=== PATIENT | female | born 1940 | race Caucasian/White ===

== ENCOUNTER 2019-03-13 19:22 | Inpatient (IN) ==
[2019-03-13] MEDS ORDERED: FUROSEMIDE 40 MG/4 ML VIAL IV ONE (19:41)
--- NOTE | 2019-03-13 19:43 | Emergency Department Note ---
SOB HPI - General Chief Complaint: Shortness of Breath/Dyspnea Stated Complaint: SOA Time Seen by Provider: 03/13/19 19:41 Source: patient Mode of arrival: ambulatory - History of Present Illness This patient has been feeling short of breath today and has been taking some extra Lasix at home but still feels short of breath. No chest pain no cough. O2 saturations are in the 80s. - Related Data Home Medications Medication Instructions Recorded Confirmed aspirin 81 mg tablet,delayed 81 mg PO QDAY tab 02/27/15 11/30/18 release ferrous sulfate 325 mg (65 mg 325 mg PO QDAY 03/26/16 11/30/18 iron) tablet cholecalciferol (vitamin D3) 400 400 unit PO QDAY 05/18/17 11/30/18 unit capsule magnesium oxide 400 mg (241.3 mg 400 mg PO QDAY tab 07/27/17 11/30/18 magnesium) tablet metoprolol succinate ER 100 mg 50 mg PO .COMPLEX 90 Days #45 tab 11/16/17 11/30/18 tablet,extended release 24 hr hydralazine 25 mg tablet 12.5 mg PO BID tab 05/19/18 11/30/18 potassium chloride ER 10 mEq 10 meq PO QDAY tab 11/09/18 11/30/18 tablet,extended release Previous Rx's Medication Instructions Recorded blood-glucose meter kit See Dose Instructions .ROUTE 08/12/17 .MEDSUPPLY #1 each blood sugar diagnostic strips See Dose Instructions .ROUTE 08/18/17 .MEDSUPPLY #300 each lancets 30 gauge See Dose Instructions .ROUTE 08/18/17 .MEDSUPPLY #300 each tramadol 37.5 mg-acetaminophen 325 1 tab PO q12h PRN #60 tab 03/16/18 mg tablet oxybutynin chloride ER 10 mg 10 mg PO BID #180 tab 05/10/18 tablet,extended release 24 hr alendronate 70 mg tablet 70 mg PO QWEEK #12 tab 07/14/18 furosemide 20 mg tablet 20 mg PO QDAY #60 tab 07/27/18 levothyroxine 137 mcg tablet 137 mcg PO QDAY #90 tab 11/01/18 lorazepam 1 mg tablet 1 mg PO BID PRN #60 tab 11/22/18 amlodipine 10 mg tablet 10 mg PO QDAY #90 tab 12/30/18 metformin 500 mg tablet 500 mg PO QDAY #90 tab 02/08/19 pantoprazole 40 mg tablet,delayed 40 mg PO QDAY #90 tab 02/08/19 release simvastatin 20 mg tablet 20 mg PO QPM #90 tab 02/08/19 clonidine HCl 0.3 mg tablet 0.3 mg PO BID #60 tab 02/25/19 Allergies Allergy/AdvReac Type Severity Reaction Status Date / Time codeine Allergy Unknown Unknown Verified 03/02/19 08:31 Environmental Allergies Allergy Unknown Unknown Uncoded 11/30/18 12:54 Tape Allergy Unknown Unknown Uncoded 11/30/18 12:54 Review of Systems All systems ED: reviewed and negative except as stated. Past Medical History - Past Medical History [facility] Narrative: Medical History (Last Reviewed 11/09/18 @ 10:00 by Javid Parikh MD) Stress (Chronic) Osteoporosis (Chronic) Congestive heart failure (Resolved) Pulmonary edema (Resolved) Hypoxia (Resolved) Respiratory distress (Resolved) Diabetes mellitus type 2 in nonobese (Chronic) PVD (peripheral vascular disease) (Chronic) PVC (premature ventricular contraction) (Chronic) First degree AV block (Chronic) Hypertensive heart disease (Chronic) Bradycardia (Chronic) Abnormal laboratory test (Chronic) Metabolic Syndrome X (Chronic) Low back pain (Chronic) Uncontrolled hypertension (Chronic) Ventricular ectopy (Chronic) Anxiety (Chronic) Anemia (Chronic) Abnormal EKG (Resolved) Hyponatremia (Resolved) Nausea & vomiting (Resolved) Hypertensive urgency (Resolved) Sciatica of right side (Chronic) Edema (Chronic) History of hysterectomy (Resolved) Parathyroid gland disorder (Chronic) Stress reaction (Chronic) Pneumonia (Resolved) Osteopenia (Chronic) Osteoarthritis (Chronic) Onychomycosis (Chronic 02/21/14) Metabolic syndrome (Chronic) Joint disorder (Resolved) Hyperparathyroidism, primary (Chronic) Hypothyroidism (Chronic) Hyperlipidemia (Chronic) Hypercalcemia (Chronic) HTN (hypertension) (Chronic) 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) Gastroesophageal reflux (Chronic) Fatigue (Chronic) Esophageal stricture (Chronic) Diverticulosis of colon (Chronic) Diabetes mellitus, type II (Chronic) Degenerative joint disease (Chronic) Syncope (Resolved) Thyroid nodule (Chronic) Toe fracture (Resolved) Colon adenoma (Chronic) Bronchitis (Chronic) Status of breast implant (Chronic 11/25/12) Carcinoma in situ of breast (Resolved) Arrhythmia (Chronic) Actinic keratosis (Chronic) Achilles bursitis (Resolved) 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) Trigger finger, acquired (Chronic) Past Surgical History (Last Reviewed 11/09/18 @ 10:00 by Javid Parikh MD) Hx of partial thyroidectomy (Resolved) History of parathyroidectomy (Resolved) History of breast reconstruction (Resolved) History of salpingoophorectomy (Resolved) History of left mastectomy (Resolved) History of tonsillectomy (Resolved) History of esophagogastroduodenoscopy (Resolved 03/10/14) History of colonoscopy (Chronic Unknown) History of cataract surgery (Resolved) History of cardiac catheterization (Resolved 12/18/10) History of breast surgery (Resolved) History of appendectomy (Resolved) Family History (Last Reviewed 11/09/18 @ 10:00 by Javid Parikh MD) Sister Diabetes mellitus Uncle Family history of malignant neoplasm Brother Hyperlipidemia Essential hypertension Mother Malignant neoplasm of stomach Grandmother(maternal) Malignant neoplasm of stomach Medical history: Reports: cancer (Carcinoma in situ left breast.), CHF, DM (type 2, not on insulin.), GERD, hyperlipidemia, hypertension, hypothyroidism, thyroid disease (Thyroid nodule.), other (First-degree AV block. Hypertensive heart disease. Bradycardia. Low back pain. PVCs. Anemia. Parathyroid adenoma. Pneumonia. Osteopenia. Osteoarthritis of fingers and lower spine. Metabolic syndrome. Hyperparathyroidism. Hypercalcemia. Randy [place] syndrome. Kiel's disease. Esophageal stricture. Diverticulosis, sigmoid. Colon adenoma.) Psychiatric history: Reports: anxiety Surgical history ED: Reports: appendectomy (1953.), breast surgery (Mastectomy, 1995 with radical reconstruction. Bilateral implants 1979. Reconstruction, left, 2000.), cataract (Bilateral.), ALEXIS/BSO, thyroidectomy (Partial, right bridgett-.), tonsillectomy (1942.), other (Parathyroidectomy, 2009.) - Social History smoking status: Never smoker Alcohol use: Reports: None Physical Exam Limitations: no limitations General appearance: alert Head: atraumatic Eye: Present: normal appearance ENT: Present: normal exam Neck: Present: normal inspection Chest: Present: normal inspection Respiratory: Present: rales/crackles Cardiovascular: Present: regular rate, normal rhythm, normal heart sounds Abdominal: Present: soft, distention. Absent: tenderness Neurological: Present: alert Psychiatric: Present: normal affect Skin: Present: warm, dry Course Vital Signs Temperature 97.6 F 03/13/19 19:22 Pulse Rate 94 H 03/13/19 19:22 Respiratory Rate 22 03/13/19 19:22 Blood Pressure 124/95 03/13/19 19:22 Pulse Oximetry (%) 79 L 03/13/19 19:22 Temperature 97.7 F 03/14/19 07:01 Pulse Rate 89 03/14/19 07:01 Respiratory Rate 16 03/14/19 07:01 Blood Pressure 118/82 03/14/19 07:01 Pulse Oximetry (%) 95 03/14/19 07:01 Shortness of Breath/Dyspnea - MDM Narrative Medical decision making narrative: This patient has a pneumonia and will be admitted to the hospital by Dr. William. - Lab Data Lab results reviewed: Yes I reviewed the patient's lab results. Result diagrams: 03/14/19 03:24 03/14/19 03:24 Lab Results 03/13/19 03/13/19 03/13/19 Range/Units 19:40 19:40 19:40 WBC 10.8 (4.5-11.0) K/mcL RBC 5.40 H (4.00-5.20) M/mcL Hgb 14.9 (12.0-15.0) g/dL Hct 46.3 (36.0-48.0) % MCV 85.7 (80.0-100.0) fL MCH 27.6 (26.0-34.0) pg MCHC 32.2 (31.0-36.0) g/dL RDW 15.3 H (11.5-14.5) % Plt Count 252 (140-440) K/mcL MPV 10.9 H (7.4-10.4) fL Gran % 77.3 (38.0-78.0) % Lymph % (Auto) 12.8 L (15.5-49.0) % Daggett % (Auto) 8.7 (1.0-12.0) % Eos % (Auto) 0.7 (0.0-7.0) % Baso % (Auto) 0.5 (0.0-2.0) % Gran # 8.4 H (1.8-8.0) K/mcL Lymph # (Auto) 1.4 L (1.5-4.8) K/mcL Daggett # (Auto) 0.9 (0.1-0.9) K/mcL Eos # (Auto) 0.1 (0.0-0.7) K/mcL Baso # (Auto) 0.1 (0.0-0.3) K/mcL VBG Lactic Acid (0.5-2.0) mmol/L Sodium 134 (133-145) mmol/L Potassium 4.0 (3.3-5.1) mmol/L Chloride 96 (96-108) mmol/L Carbon Dioxide 22 (22-30) mmol/L Anion Gap 16.0 (8-16) BUN 17 (8-23) mg/dl Creatinine 1.1 (0.6-1.1) mg/dl GFR Calculation 48 Glucose 149 H (70-105) mg/dL Calcium 10.4 (8.6-10.4) mg/dl Total Bilirubin 0.3 (0.0-1.0) mg/dL AST 25 (0-37) U/l ALT 27 (0-40) U/l Alkaline Phosphatase 114 (39-117) U/L Troponin T < 0.01 (0-0.03) ng/ml NT-Pro-B Natriuret Pep (0-450) pg/ml Total Protein 7.7 (5.9-8.4) gm/dL Albumin 4.3 (3.2-5.2) gm/dL Globulin 3.4 (2.2-3.7) gm/dL Albumin/Globulin Ratio 1.3 (1.0-2.3) Procalcitonin (<0.10) ng/mL 03/13/19 03/13/19 03/13/19 Range/Units 21:09 22:21 22:21 WBC (4.5-11.0) K/mcL RBC (4.00-5.20) M/mcL Hgb (12.0-15.0) g/dL Hct (36.0-48.0) % MCV (80.0-100.0) fL MCH (26.0-34.0) pg MCHC (31.0-36.0) g/dL RDW (11.5-14.5) % Plt Count (140-440) K/mcL MPV (7.4-10.4) fL Gran % (38.0-78.0) % Lymph % (Auto) (15.5-49.0) % Daggett % (Auto) (1.0-12.0) % Eos % (Auto) (0.0-7.0) % Baso % (Auto) (0.0-2.0) % Gran # (1.8-8.0) K/mcL Lymph # (Auto) (1.5-4.8) K/mcL Daggett # (Auto) (0.1-0.9) K/mcL Eos # (Auto) (0.0-0.7) K/mcL Baso # (Auto) (0.0-0.3) K/mcL VBG Lactic Acid 1.5 (0.5-2.0) mmol/L Sodium (133-145) mmol/L Potassium (3.3-5.1) mmol/L Chloride (96-108) mmol/L Carbon Dioxide (22-30) mmol/L Anion Gap (8-16) BUN (8-23) mg/dl Creatinine (0.6-1.1) mg/dl GFR Calculation Glucose (70-105) mg/dL Calcium (8.6-10.4) mg/dl Total Bilirubin (0.0-1.0) mg/dL AST (0-37) U/l ALT (0-40) U/l Alkaline Phosphatase (39-117) U/L Troponin T < 0.01 (0-0.03) ng/ml NT-Pro-B Natriuret Pep (0-450) pg/ml Total Protein (5.9-8.4) gm/dL Albumin (3.2-5.2) gm/dL Globulin (2.2-3.7) gm/dL Albumin/Globulin Ratio (1.0-2.3) Procalcitonin < 0.05 (<0.10) ng/mL 03/13/19 Range/Units 22:21 WBC (4.5-11.0) K/mcL RBC (4.00-5.20) M/mcL Hgb (12.0-15.0) g/dL Hct (36.0-48.0) % MCV (80.0-100.0) fL MCH (26.0-34.0) pg MCHC (31.0-36.0) g/dL RDW (11.5-14.5) % Plt Count (140-440) K/mcL MPV (7.4-10.4) fL Gran % (38.0-78.0) % Lymph % (Auto) (15.5-49.0) % Daggett % (Auto) (1.0-12.0) % Eos % (Auto) (0.0-7.0) % Baso % (Auto) (0.0-2.0) % Gran # (1.8-8.0) K/mcL Lymph # (Auto) (1.5-4.8) K/mcL Daggett # (Auto) (0.1-0.9) K/mcL Eos # (Auto) (0.0-0.7) K/mcL Baso # (Auto) (0.0-0.3) K/mcL VBG Lactic Acid (0.5-2.0) mmol/L Sodium (133-145) mmol/L Potassium (3.3-5.1) mmol/L Chloride (96-108) mmol/L Carbon Dioxide (22-30) mmol/L Anion Gap (8-16) BUN (8-23) mg/dl Creatinine (0.6-1.1) mg/dl GFR Calculation Glucose (70-105) mg/dL Calcium (8.6-10.4) mg/dl Total Bilirubin (0.0-1.0) mg/dL AST (0-37) U/l ALT (0-40) U/l Alkaline Phosphatase (39-117) U/L Troponin T (0-0.03) ng/ml NT-Pro-B Natriuret Pep 63139.0 H (0-450) pg/ml Total Protein (5.9-8.4) gm/dL Albumin (3.2-5.2) gm/dL Globulin (2.2-3.7) gm/dL Albumin/Globulin Ratio (1.0-2.3) Procalcitonin (<0.10) ng/mL - Radiology Data Radiology results reviewed: Yes I reviewed the patient's radiology results. Disposition Pt seen by ACCELERATOR TECHNICIAN/PA only: No Clinical Impression: Community acquired pneumonia Disposition: Xfer As Inpt ([facility]) Condition: Fair
--- NOTE | 2019-03-13 20:27 | XRay Report ---
HISTORY: Shortness of breath FINDINGS: Large alveolar infiltrates are present throughout both lungs with the greatest consolidation in the lower lobes, right worse than left. The heart is mildly enlarged. Pulmonary vessels are obscured by the infiltrates. The infiltrates have become worse bilaterally since 12/24/17. Heart is larger today. There are surgical clips in the axillary portion left breast. IMPRESSION: Severe infiltrates in both lungs. The pattern is more suggestive of pneumonia rather than pulmonary edema. Interpreted and Authenticated by: Vladimir Alas 03/13/19
[2019-03-13] MEDS ORDERED: cefTRIAXone 1 GM VIAL IV ONE (20:30)
[2019-03-13] MEDS ORDERED: LEVOFLOXACIN 750 MG/150 ML BAG IV ONE (20:30)
[2019-03-13 20:41] LABS: Basophils # (Auto) 0.1 K/mcL (0.0-0.3); Basophils % (Auto) 0.5 % (0.0-2.0); Eosinophils # (Auto) 0.1 K/mcL (0.0-0.7); Eosinophils % (Auto) 0.7 % (0.0-7.0); Granulocytes % (Auto) 77.3 % (38.0-78.0); Hematocrit 46.3 % (36.0-48.0); Hemoglobin 14.9 g/dL (12.0-15.0); Lymphocytes # (Auto) 1.4 K/mcL (1.5-4.8); Lymphocytes % (Auto) 12.8 % (15.5-49.0); Mean Cell Volume 85.7 fL (80.0-100.0); Mean Corpuscular HGB Conc 32.2 g/dL (31.0-36.0); Mean Platelet Volume 10.9 fL (7.4-10.4); Monocytes # (Auto) 0.9 K/mcL (0.1-0.9); Monocytes % (Auto) 8.7 % (1.0-12.0); Platelet Count 252 K/mcL (140-440); Red Cell Distribution Width 15.3 % (11.5-14.5); WBC 10.8 K/mcL (4.5-11.0)
[2019-03-13 21:03] LABS: ALT/SGPT 27 U/l (0-40); AST/SGOT 25 U/l (0-37); Albumin 4.3 gm/dL (3.2-5.2); Albumin/Globulin Ratio 1.3 (1.0-2.3); Alkaline Phosphatase 114 U/L (39-117); Bilirubin,Total 0.3 mg/dL (0.0-1.0); Blood Urea Nitrogen 17 mg/dl (8-23); Calcium 10.4 mg/dl (8.6-10.4); Carbon Dioxide 22 mmol/L (22-30); Chloride 96 mmol/L (96-108); Globulin 3.4 gm/dL (2.2-3.7); Glomerular Filtration Rate 48; Glucose 149 mg/dL (70-105)
--- NOTE | 2019-03-13 23:46 | Internal Med History&Physical ---
Medical - H&P: HPI Patient information: Note initiated : 03/13/19 at 11:40 pm Service Date, if different from initiated Date: [] Patient: Jeanne Stover a 78 y/o F admitted on for SOB. Chief Complaint: Dyspnea History of present illness: Ms. Stover is a 78 year old F with a history of hypertension, type 2 diabetes, diastolic congestive heart failure, peripheral arterial disease who presents to the emergency room with the onset of dyspnea. History is obtained in speaking to the patient, Dr. benton as well as reviewing old records which are obtained and summarized. Patient was feeling fairly well today, to her usual self until about 5:30 PM when she had the fairly abrupt onset of shortness of breath. She tells me it was her congestive heart failure and she felt the fluid building in her lungs. In retrospect she noted that she had started coughing a bit earlier in the day and felt a rattling in her chest which has happened on previous occasions when she has had heart failure. She was producing some clear sputum. She took a dose of her Lasix (20 mg) at home, did not have a diuretic effect, repeated the dose without effect. During this time she could not lie down due to dyspnea, and indeed had gone from sitting upright with dyspnea to having to bend over to try to catch her breath. She notes that over the last few days she does not think her furosemide has been producing diuresis as usual. Over the last couple of weeks she is gained about 5 pounds. She does have some chronic lower extr emity edema which is about the same. She has had no change in her diet or medication regimen. She occasionally gets up at night with a similar dyspneic and rattling feeling, treated with an oral furosemide until it improves. This occurred most recently a couple of nights ago. Her blood pressure at home this morning was 134/71, she checks it daily. Patient as noted was feeling well yesterday, was feeling fine until afternoon today. She is had no fever, no chills. No chest pain no chest tightness or squeezing. No pleuritic pain. No purulent sputum. In the emergency department, the patient was in hypoxic respiratory failure requiring supplemental oxygen up to a nonrebreather at times. Evaluation showed bilateral alveolar infiltrates, concerning for pneumonia. Her white count was 10,000. Her temperature was normal. Blood pressure was high normal to elevated. Pulse was in the 80-100 range. She received antibiotics for pneumonia, received 40 mg of furosemide with significant diuresis after IV administration. When I see the patient, she states she is feeling much better with a significant improvement in her shortness of breath after the diuretic. No headache, no vision changes, no sore throat, no rhinorrhea, no abdominal pain, no nausea, vomiting, diarrhea. No dysuria. No focal neurologic symptoms. She is being admitted for the treatment of acute hypoxic respiratory failure, suspected heart failure, rule out pneumonia. All systems: reviewed and no additional remarkable complaints except as stated Medical - H&P: PMH Medical history: Stress (Chronic) Osteoporosis (Chronic) Congestive heart failure (Resolved) Pulmonary edema (Resolved) Hypoxia (Resolved) Diabetes mellitus type 2 in nonobese (Chronic) PVD (peripheral vascular disease) (Chronic) PVC (premature ventricular contraction) (Chronic) First degree AV block (Chronic) Hypertensive heart disease (Chronic) Bradycardia (Chronic) Abnormal laboratory test (Chronic) Metabolic Syndrome X (Chronic) Low back pain (Chronic) Uncontrolled hypertension (Chronic) Ventricular ectopy (Chronic) Anxiety (Chronic) Anemia (Chronic) Abnormal EKG (Resolved) Hyponatremia (Resolved) Nausea & vomiting (Resolved) Hypertensive urgency (Resolved) Sciatica of right side (Chronic) Edema (Chronic) History of hysterectomy (Resolved) Parathyroid gland disorder (Chronic) Stress reaction (Chronic) Pneumonia (Resolved) Osteopenia (Chronic) Osteoarthritis (Chronic) Onychomycosis (Chronic 02/21/14) Metabolic syndrome (Chronic) Joint disorder (Resolved) Hyperparathyroidism, primary (Chronic) Hypothyroidism (Chronic) Hyperlipidemia (Chronic) Hypercalcemia (Chronic) HTN (hypertension) (Chronic) 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) Gastroesophageal reflux (Chronic) Fatigue (Chronic) Esophageal stricture (Chronic) Diverticulosis of colon (Chronic) Diabetes mellitus, type II (Chronic) Degenerative joint disease (Chronic) Syncope (Resolved) Thyroid nodule (Chronic) Toe fracture (Resolved) Colon adenoma (Chronic) Bronchitis (Chronic) Status of breast implant (Chronic 11/25/12) Carcinoma in situ of breast (Resolved) Arrhythmia (Chronic) Actinic keratosis (Chronic) Achilles bursitis (Resolved) 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) Trigger finger, acquired (Chronic) Surgical history: Hx of partial thyroidectomy (Resolved) History of parathyroidectomy (Resolved) History of breast reconstruction (Resolved) History of salpingoophorectomy (Resolved) History of left mastectomy (Resolved) History of tonsillectomy (Resolved) History of esophagogastroduodenoscopy (Resolved 03/10/14) History of colonoscopy (Chronic Unknown) History of cataract surgery (Resolved) History of cardiac catheterization (Resolved 12/18/10) History of breast surgery (Resolved) History of appendectomy (Resolved) Pertinent family history: Sister Diabetes mellitus Uncle Family history of malignant neoplasm Brother Hyperlipidemia Essential hypertension Mother Malignant neoplasm of stomach Grandmother(maternal) Malignant neoplasm of stomach Social history: Patient lives with her . She occasionally has alcoholic drink. She does not smoke tobacco. Medical - H&P: Meds Home Medications Medication Instructions Recorded Confirmed Type aspirin 81 mg tablet,delayed 81 mg PO QDAY tab 02/27/15 11/30/18 History release ferrous sulfate 325 mg (65 mg 325 mg PO QDAY 03/26/16 11/30/18 History iron) tablet cholecalciferol (vitamin D3) 400 400 unit PO QDAY 05/18/17 11/30/18 History unit capsule magnesium oxide 400 mg (241.3 mg 400 mg PO QDAY tab 07/27/17 11/30/18 History magnesium) tablet blood-glucose meter kit See Dose Instructions .ROUTE 08/12/17 11/09/18 Rx .MEDSUPPLY #1 each blood sugar diagnostic strips See Dose Instructions .ROUTE 08/18/17 11/09/18 Rx .MEDSUPPLY #300 each lancets 30 gauge See Dose Instructions .ROUTE 08/18/17 11/09/18 Rx .MEDSUPPLY #300 each metoprolol succinate ER 100 mg 50 mg PO .COMPLEX 90 Days #45 tab 11/16/17 History tablet,extended release 24 hr tramadol 37.5 mg-acetaminophen 325 1 tab PO q12h PRN #60 tab 03/16/18 11/30/18 Rx mg tablet oxybutynin chloride ER 10 mg 10 mg PO BID #180 tab 05/10/18 11/30/18 Rx tablet,extended release 24 hr hydralazine 25 mg tablet 12.5 mg PO BID tab 05/19/18 11/30/18 History alendronate 70 mg tablet 70 mg PO QWEEK #12 tab 07/14/18 11/30/18 Rx furosemide 20 mg tablet 20 mg PO QDAY #60 tab 07/27/18 11/30/18 Rx levothyroxine 137 mcg tablet 137 mcg PO QDAY #90 tab 11/01/18 11/30/18 Rx potassium chloride ER 10 mEq 10 meq PO QDAY tab 11/09/18 11/30/18 History tablet,extended release lorazepam 1 mg tablet 1 mg PO BID PRN #60 tab 11/22/18 11/30/18 Rx amlodipine 10 mg tablet 10 mg PO QDAY #90 tab 12/30/18 Rx metformin 500 mg tablet 500 mg PO QDAY #90 tab 02/08/19 Rx pantoprazole 40 mg tablet,delayed 40 mg PO QDAY #90 tab 02/08/19 Rx release simvastatin 20 mg tablet 20 mg PO QPM #90 tab 02/08/19 Rx clonidine HCl 0.3 mg tablet 0.3 mg PO BID #60 tab 02/25/19 Rx Allergies Allergy/AdvReac Type Severity Reaction Status Date / Time codeine Allergy Unknown Unknown Verified 03/02/19 08:31 Environmental Allergies Allergy Unknown Unknown Uncoded 11/30/18 12:54 Tape Allergy Unknown Unknown Uncoded 11/30/18 12:54 Medical - H&P: Exam - Constitutional Vitals: Temp Pulse Resp BP Pulse Ox 97.6 F 93 H 20 136/87 94 03/13/19 19:22 03/13/19 22:29 03/13/19 22:29 03/13/19 22:29 03/13/19 22:29 Exam: GENERAL: Alert, oriented, in no acute distress. Cooperative, appears stated age. HEENT: Atraumatic. PERRL at 4 mm, conjunctiva clear, no scleral icterus. He aring grossly intact. Oropharynx with moist mucous membranes tongue midline. Ventimask in place NECK: Supple without meningismus, no thyromegaly RESPIRATORY: Crackles up approximately 2/3 bilaterally posteriorly, crackles also appreciated in anterior lung bird. Mild accessory muscle use. CARDIOVASCULAR: Irregular (PVCs on monitor), partially obscured by lung sounds, no murmur appreciated. Trace to 1+ peripheral edema at the ankles. JVP 1 cm above the clavicle while the patient is at approximately 60 degrees. Carotid pulses 2+ without bruit. Pedal pulses 2+. GI: Abdomen soft, nontender, no guarding or rebound. Bowel sounds are present. No hepatosplenomegaly. MUSCULOSKELETAL: No joint erythema or swelling, normal range of motion in all extremities. SKIN: Warm, dry. Skin turgor decreased. NEUROLOGIC: Cranial nerves II through XII grossly intact. Muscle mass normal for age. Strength 5/5 in the upper and lower extremities. Sensation intact to light touch bilaterally. Deep tendon reflexes 2+ at the biceps and patella. PSYCHIATRIC: Alert, oriented x3, normal mood and affect, normal insight. Medical - H&P: Reslt - Labs CBC & Chem 7: 03/13/19 19:40 03/13/19 19:40 Labs: Short CBC 03/13/19 Range/Units 19:40 WBC 10.8 (4.5-11.0) K/mcL Hgb 14.9 (12.0-15.0) g/dL Hct 46.3 (36.0-48.0) % Plt Count 252 (140-440) K/mcL BMP 03/13/19 19:40 Sodium 134 Potassium 4.0 Chloride 96 Carbon Dioxide 22 BUN 17 Creatinine 1.1 Glucose 149 H Calcium 10.4 Cardiac Enzymes 03/13/19 03/13/19 Range/Units 19:40 22:21 Troponin T < 0.01 < 0.01 (0-0.03) ng/ml Liver Function 03/13/19 Range/Units 19:40 Total Bilirubin 0.3 (0.0-1.0) mg/dL AST 25 (0-37) U/l ALT 27 (0-40) U/l Alkaline Phosphatase 114 (39-117) U/L Albumin 4.3 (3.2-5.2) gm/dL - EKG Data -: EKG Reviewed by Myself - Imaging and Cardiology Chest x-ray Status: image reviewed by me Additional comments: FINDINGS: Large alveolar infiltrates are present throughout both lungs with the greatest consolidation in the lower lobes, right worse than left. The heart is mildly enlarged. Pulmonary vessels are obscured by the infiltrates. The infiltrates have become worse bilaterally since 12/24/17. Heart is larger today. There are surgical clips in the axillary portion left breast. IMPRESSION: Severe infiltrates in both lungs. The pattern is more suggestive of pneumonia rather than pulmonary edema. Medical - H&P: A/P (1) Acute respiratory failure with hypoxia Current visit: Yes Status: Acute (2) Acute on chronic diastolic congestive heart failure Current visit: Yes Status: Acute (3) Hypertensive heart disease Current visit: No Status: Chronic (4) Pneumonia Problem details: remote Current visit: No Status: Resolved - Narrative A/P Narrative: 78-year-old female with a history of hypertension, hypertensive heart disease, diastolic heart failure, diabetes presents with acute respiratory distress and respiratory failure. Acute hypoxic respiratory failure. Onset was fairly abrupt about 5:30 PM this evening and severe in nature. She has had past similar feelings associated with decompensation of her heart failure. Radiograph is concerning for possible pneumonia, though she has no leukocytosis, fever or purulent sputum. She has improved after diuresis. In 2017, echocardiogram showed grade 2 diastolic dysfunction. Plan: Inpatient admission to telemetry Continue with diuresis Monitor for evidence of infection, continue antibiotics if apparent Supplemental oxygen as needed Diastolic heart failure. Suspicion for acute on chronic diastolic heart failure. BNP is elevated to almost 11,000. Last reading earlier in 2019 and in 2018 were in the 3-4000 range. She does have evidence of elevated central pressures with elevated neck veins on exam. Coarse rales consistent with pulmonary edema are present, though that could be both cardiogenic or noncardiogenic. Last echocardiogram was 2 years ago. She has had a couple of episodes of having to rise at night and take furosemide for shortness of breath in the past few months, most recently a couple days ago. Etiology of decompensation not clear, her weight has gone up but it has been over a few weeks. Blood pressure was under control this morning, though it is noted she has hard to control blood pressure in her chart. No change in medications or diet. Plan: Continue with diuresis as that is improved her pulmonary status, recheck echocardiogram. Resume home antihypertensives once medications reconciled. Pneumonia, rule out. Radiograph read as pneumonia. No fever, leukocytosis or purulent sputum. Has received antibiotics in the emergency department. Plan: Continue to monitor for evidence of infection or failure to respond to treatments above. Hypertension with hypertensive heart disease. On clonidine, hydralazine among other antihypertensives. Plan: Resume home regimen once verified, adjust as needed. Type 2 diabetes. Takes metformin at home. Plan: Hold metformin with acute illness. Begin sliding scale if glucose is become elevated. Hypothyroidism, peripheral arterial disease. Continue with home regimen. CODE STATUS is limited. Patient would not want cardiopulmonary resuscitation but would allow intubation for respiratory failure if needed. Prophylaxis: Lovenox
[2019-03-14] MEDS ORDERED: ALBUTEROL SULFATE 2.5 MG/3 ML NEBULIZER NEB PRN (00:57)
[2019-03-14] MEDS ORDERED: ONDANSETRON 4 MG/2 ML VIAL IV PRN (00:57)
[2019-03-14] MEDS ORDERED: POTASSIUM CHLORIDE 20 MEQ TABLET PO ONE ×2 (00:57→01:09)
[2019-03-14] MEDS ORDERED: ACETAMINOPHEN 325 MG TABLET PO PRN (00:57)
[2019-03-14] MEDS ORDERED: ACETAMINOPHEN 325 MG TABLET PO ONE (03:27)
[2019-03-14] MEDS: 0.9 % SODIUM CHLORIDE 10 ML SYRINGE IV SCH ×3 (05:43→22:28)
[2019-03-14 06:03] LABS: Basophils # (Auto) 0 K/mcL (0.0-0.3); Basophils % (Auto) 0.2 % (0.0-2.0); Eosinophils # (Auto) 0 K/mcL (0.0-0.7); Eosinophils % (Auto) 0 % (0.0-7.0); Hematocrit 45.7 % (36.0-48.0); Hemoglobin 14.7 g/dL (12.0-15.0); Lymphocytes # (Auto) 0.7 K/mcL (1.5-4.8); Lymphocytes % (Auto) 5.6 % (15.5-49.0); Mean Cell Volume 86.9 fL (80.0-100.0); Mean Corpuscular HGB Conc 32.3 g/dL (31.0-36.0); Mean Platelet Volume 10.3 fL (7.4-10.4); Monocytes # (Auto) 0.8 K/mcL (0.1-0.9); Monocytes % (Auto) 6.2 % (1.0-12.0); Platelet Count 227 K/mcL (140-440); RBC 5.25 M/mcL (4.00-5.20); Red Cell Distribution Width 14.8 % (11.5-14.5); WBC 13.3 K/mcL (4.5-11.0)
[2019-03-14 07:07] LABS: ALT/SGPT 22 U/l (0-40); AST/SGOT 25 U/l (0-37); Albumin 4.1 gm/dL (3.2-5.2); Albumin/Globulin Ratio 1.2 (1.0-2.3); Alkaline Phosphatase 100 U/L (39-117); Bilirubin,Direct < 0.2 mg/dL (0.0-0.3); Bilirubin,Total 0.4 mg/dL (0.0-1.0); Blood Urea Nitrogen 16 mg/dl (8-23); Calcium 10.3 mg/dl (8.6-10.4); Carbon Dioxide 20 mmol/L (22-30); Chloride 93 mmol/L (96-108); Globulin 3.3 gm/dL (2.2-3.7); Glomerular Filtration Rate 48; Glucose 109 mg/dL (70-105); Lactate Dehydrogenase 308 U/L (94-250); Phosphorous 2.6 mg/dL (2.7-4.5); Triglycerides 81 mg/dl (<150); Uric Acid 6.7 mg/dL (2.5-8.0)
[2019-03-14] MEDS: ENOXAPARIN 40 MG/0.4 ML SYRINGE SQ SCH (09:22)
[2019-03-14] MEDS: FUROSEMIDE 40 MG/4 ML VIAL IV SCH ×2 (09:22→16:19)
[2019-03-14] MEDS ORDERED: LORazepam 1 MG TABLET PO PRN (11:09)
[2019-03-14] MEDS: amLODIPine 10 MG TABLET PO SCH (12:35)
[2019-03-14] MEDS: METOPROLOL SUCCINATE 50 MG TAB.XL.24H PO SCH (12:35)
[2019-03-14] MEDS: hydrALAZINE 25 MG TABLET PO SCH ×2 (12:36→20:38)
[2019-03-14] MEDS: cloNIDine HCL 0.1 MG TABLET PO SCH ×2 (12:36→20:38)
[2019-03-14] MEDS: LEVOTHYROXINE SODIUM 112 MCG TABLET PO SCH (12:36)
[2019-03-14] MEDS: LEVOTHYROXINE 25 MCG TABLET PO SCH (12:36)
[2019-03-14] MEDS: POTASSIUM CHLORIDE 10 MEQ TABLET PO SCH (12:37)
--- NOTE | 2019-03-14 16:11 | XRay Report ---
CLINICAL INFORMATION: Follow-up infiltrate COMPARISON: 12/24/2017 and 03/13/2019 TECHNIQUE: PA and Lateral views FINDINGS: The heart size, mediastinum and pulmonary vessels are unremarkable. Bilateral mid and lower lung infiltrates have almost totally cleared since yesterday's study with only minimal residual in the right infrahilar region. There are no effusions. Right calcified breast implant contributes to increased density in the right lung base. IMPRESSION: Complete resolution in bilateral mid and lower lung infiltrates.. Interpreted and Authenticated by: Vitaliy Leonard 03/14/19
[2019-03-14] MEDS: OXYBUTYNIN CHLORIDE 5 MG TAB.XL.24H PO SCH (20:37)
[2019-03-14] MEDS ORDERED: METOPROLOL SUCCINATE 50 MG TAB.XL.24H PO SCH (21:00)
--- NOTE | 2019-03-14 21:40 | Internal Med Progress Note ---
Medical - PN: Subj Patient information: Note initiated : 03/14/19 at 9:38 pm Service Date, if different from initiated Date: [] Patient: Jeanne Stover 78 y/o F admitted on 03/14/19 for SOA. Chief Complaint: Follow-up congestive heart failure Interval history: Patient was feeling fairly well today, to her usual self until about 5:30 PM when she had the fairly abrupt onset of shortness of breath. She tells me it was her congestive heart failure and she felt the fluid building in her lungs. In retrospect she noted that she had started coughing a bit earlier in the day and felt a rattling in her chest which has happened on previous occasions when she has had heart failure. She was producing some clear sputum. She took a dose of her Lasix (20 mg) at home, did not have a diuretic effect, repeated the dose without effect. During this time she could not lie down due to dyspnea, and indeed had gone from sitting upright with dyspnea to having to bend over to try to catch her breath. She notes that over the last few days she does not think her furosemide has been producing diuresis as usual. Over the last couple of weeks she is gained about 5 pounds. She does have some chronic lower extremity edema which is about the same. She has had no change in her diet or medication regimen. She occasionally gets up at night with a similar dyspneic and rattling feeling, treated with an oral furosemide until it improves. This occurred most recently a couple of nights ago. Her blood pressure at home this morning was 134/71, she checks it daily. Patient as noted was feeling well yesterday, was feeling fine until afternoon today. She is had no fever, no chills. No chest pain no chest tightness or squeezing. No pleuritic pain. No purulent sputum. In the emergency department, the patient was in hypoxic respiratory failure requiring supplemental oxygen up to a nonrebreather at times. Evaluation showed bilateral alveolar infiltrates, concerning for pneumonia. Her white count was 10,000. Her temperature was normal. Blood pressure was high normal to elevated. Pulse was in the 80-100 range. She received antibiotics for pneumonia, received 40 mg of furosemide with significant diuresis after IV administration. When I see the patient, she states she is feeling much better with a significant improvement in her shortness of breath after the diuretic. No headache, no vision changes, no sore throat, no rhinorrhea, no abdominal pain, no nausea, vomiting, diarrhea. No dysuria. No focal neurologic symptoms. She is being admitted for the treatment of acute hypoxic respiratory failure, suspected heart failure, rule out pneumonia. 2feels significantly improved today. No longer on oxygen. No cough or sputum production. No fevers. Follow-up radiograph shows clearing of infilt rates overnight. - Constitutional Vitals: Vital Signs Temp Pulse Resp BP Pulse Ox 98.0 F 85 16 102/85 94 03/14/19 19:41 03/14/19 19:41 03/14/19 19:41 03/14/19 19:41 03/14/19 19:41 Period Temp Pulse Resp BP Sys/Goel Pulse Ox Last 24 Hr 97.0 F-98.5 F 75-93 15-25 102-152/62-124 93-97 Intake and Output 03/14/19 03/14/19 03/14/19 05:59 13:59 21:59 Intake Total 150 Output Total 3000 1075 825 Balance -2850 -1075 -825 Weight 145 lb Intake & Output: Intake & Output 03/14/19 03/14/19 03/14/19 05:59 13:59 21:59 Intake Total 150 Output Total 3000 1075 825 Balance -2850 -1075 -825 Weight 145 lb Intake: IV 150 Output: Void Amount 3000 1075 825 Other: Meal Breakfast Percent of Meal Consumed 100% Feeding Ability Assist with Tray Set Up Urine Appearance Clear Clear Clear Urine Color Pale Pale Pale Stool Size Moderate Stool Color Brown Stool Consistency Dry and Hard Formed Exam: General: In bed no acute distress Chest: Few basal crackles, no accessory muscle use Cardiovascular: Irregular rhythm (PVCs on monitor), no peripheral edema; JVP below the clavicle Abdomen: Soft, nontender Neuro: Alert, oriented, nonfocal. Medical - PN: Obj Da - Labs CBC & Chem 7: 03/14/19 03:24 03/14/19 03:24 Labs: Abnormal Lab Results 03/14/19 03/14/19 03/13/19 03:24 03:24 22:21 WBC 13.3 H RBC 5.25 H RDW 14.8 H MPV Gran % 88.0 H Lymph % (Auto) 5.6 L Gran # 11.7 H Lymph # (Auto) 0.7 L Chloride 93 L Carbon Dioxide 20 L Anion Gap 20.0 H Glucose 109 H Phosphorus 2.6 L Lactate Dehydrogenase 308 H NT-Pro-B Natriuret Pep 24961.0 H 03/13/19 03/13/19 19:40 19:40 WBC RBC 5.40 H RDW 15.3 H MPV 10.9 H Gran % Lymph % (Auto) 12.8 L Gran # 8.4 H Lymph # (Auto) 1.4 L Chloride Carbon Dioxide Anion Gap Glucose 149 H Phosphorus Lactate Dehydrogenase NT-Pro-B Natriuret Pep Meds: Medications Acetaminophen (Tylenol) 650 mg PO Q6HP PRN PRN Reason: PAIN/FEVER > 101 Last Admin: 03/14/19 03:27 Dose: 650 mg Documented by: Albuterol Sulfate (Ventolin) 2.5 mg NEB Q4HP PRN PRN Reason: Shortness Of Breath Or Wheezing Amlodipine Besylate (Norvasc) 10 mg PO DAILY [facility] Last Admin: 03/14/19 12:35 Dose: 10 mg Documented by: Aspirin (Aspirin) 81 mg PO DAILY [facility] Clonidine HCl (Catapres) 0.3 mg PO BID [facility] Last Admin: 03/14/19 20:38 Dose: 0.3 mg Documented by: Enoxaparin Sodium (Lovenox) 40 mg SQ DAILY [facility] Last Admin: 03/14/19 09:22 Dose: 40 mg Documented by: Furosemide (Lasix) 40 mg IV BIDD [facility] Last Admin: 03/14/19 16:19 Dose: 40 mg Documented by: Hydralazine HCl (Apresoline) 12.5 mg PO BID [facility] Last Admin: 03/14/19 20:38 Dose: 12.5 mg Documented by: Levothyroxine Sodium (Synthroid) 25 mcg PO QAMAC [facility] Last Admin: 03/14/19 12:36 Dose: 25 mcg Documented by: Levothyroxine Sodium (Synthroid) 112 mcg PO QAMAC [facility] Last Admin: 03/14/19 12:36 Dose: 112 mcg Documented by: Lorazepam (Ativan) 1 mg PO BIDP PRN PRN Reason: anxiety Magnesium Oxide (Magnesium Oxide) 400 mg PO QDAY [facility] Metoprolol Succinate (Toprol Xl) 50 mg PO DAILY [facility] Last Admin: 03/14/19 12:35 Dose: 50 mg Documented by: Metoprolol Succinate (Toprol Xl) 100 mg PO HS [facility] Last Admin: 03/14/19 20:38 Dose: 100 mg Documented by: Ondansetron HCl (Zofran) 4 mg IV Q4HP PRN PRN Reason: Nausea And Vomiting Last Admin: 03/14/19 12:00 Dose: 4 mg Documented by: Oxybutynin Chloride (Ditropan Xl) 10 mg PO BID [facility] Last Admin: 03/14/19 20:37 Dose: 10 mg Documented by: Potassium [facility] ([facility]ur) [facility] Last Admin: 03/14/19 12:37 Dose: Not Given Documented by: Sodium Chloride (Saline Flush) 10 ml IV Q8 [facility] Last Admin: 03/14/19 16:19 Dose: 10 ml Documented by: - Imaging and cardiology Chest x-ray Status: image reviewed by me Additional comments: IMPRESSION: Complete resolution in bilateral mid and lower lung infiltrates Medical - PN: A/P (1) Acute respiratory failure with hypoxia Status: Acute Current Visit: Yes (2) Acute on chronic diastolic congestive heart failure Status: Acute Current Visit: Yes (3) Hypertensive heart disease Status: Chronic Current Visit: No (4) Pneumonia Problem details: remote Status: Ruled-out Current Visit: No - Narrative A/P Narrative: 78-year-old female with a history of hypertension, hypertensive heart disease, diastolic heart failure, diabetes presents with acute respiratory distress and respiratory failure. Acute hypoxic respiratory failure. Resolved. Secondary to acute on chronic diastolic heart failure. Onset was fairly abrupt about 5:30 PM on the evening of admission. She has had past similar feelings associated with decompensation of her heart failure. Radiograph is concerning for possible pneumonia, however clinically this is heart failure and her infiltrates have now resolved. Plan: Monitor, supplemental oxygen as needed Acute on chronic diastolic heart failure. BNP is elevated to almost 11,000. Improved significantly after diuresis, radiographic changes have resolved. Repeat echocardiogram shows estimated ejection fraction 45 to 50%, though endocardium was difficult to delineate. Could not comment on diastolic fu nction, in 2017 she had grade 2 diastolic dysfunction. 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 Hypertension with hypertensive heart disease. On clonidine, hydralazine among other antihypertensives. Good control on current home regimen Plan: Resumed home regimen. Pneumonia. Ruled out. Was not present on admission. Type 2 diabetes. Takes metformin at home. Plan: Hold metformin with acute illness. Begin sliding scale if glucose is become elevated. Hypothyroidism, peripheral arterial disease. Continue with home regimen. CODE STATUS is limited. Patient would not want cardiopulmonary resuscitation but would allow intubation for respiratory failure if needed. Prophylaxis: Lovenox Medical - PN: Qual - VTE Deep Vein Thrombosis/Pulmonary Embolism Present on Admission: No
[2019-03-15] MEDS: 0.9 % SODIUM CHLORIDE 10 ML SYRINGE IV SCH (05:38)
[2019-03-15] MEDS: hydrALAZINE 25 MG TABLET PO SCH (07:37)
[2019-03-15] MEDS: LEVOTHYROXINE 25 MCG TABLET PO SCH (07:37)
[2019-03-15] MEDS: METOPROLOL SUCCINATE 50 MG TAB.XL.24H PO SCH (07:37)
[2019-03-15] MEDS: POTASSIUM CHLORIDE 10 MEQ TABLET PO SCH (07:37)
[2019-03-15] MEDS: LEVOTHYROXINE SODIUM 112 MCG TABLET PO SCH (07:38)
[2019-03-15] MEDS: ENOXAPARIN 40 MG/0.4 ML SYRINGE SQ SCH (07:38)
[2019-03-15] MEDS: cloNIDine HCL 0.1 MG TABLET PO SCH (07:38)
[2019-03-15] MEDS: amLODIPine 10 MG TABLET PO SCH (07:38)
[2019-03-15] MEDS: OXYBUTYNIN CHLORIDE 5 MG TAB.XL.24H PO SCH (07:38)
[2019-03-15] MEDS: FUROSEMIDE 40 MG/4 ML VIAL IV SCH (07:38)
[2019-03-15 08:33] LABS: Basophils # (Auto) 0 K/mcL (0.0-0.3); Basophils % (Auto) 0.6 % (0.0-2.0); Eosinophils # (Auto) 0.1 K/mcL (0.0-0.7); Eosinophils % (Auto) 0.8 % (0.0-7.0); Granulocytes % (Auto) 67.1 % (38.0-78.0); Hematocrit 44.2 % (36.0-48.0); Hemoglobin 14.4 g/dL (12.0-15.0); Lymphocytes # (Auto) 1.5 K/mcL (1.5-4.8); Lymphocytes % (Auto) 21.1 % (15.5-49.0); Mean Cell Volume 85.4 fL (80.0-100.0); Mean Corpuscular HGB Conc 32.6 g/dL (31.0-36.0); Mean Platelet Volume 10.2 fL (7.4-10.4); Monocytes # (Auto) 0.7 K/mcL (0.1-0.9); Monocytes % (Auto) 10.4 % (1.0-12.0); Platelet Count 235 K/mcL (140-440); RBC 5.17 M/mcL (4.00-5.20); Red Cell Distribution Width 14.9 % (11.5-14.5)
[2019-03-15 08:58] LABS: Blood Urea Nitrogen 23 mg/dl (8-23); Calcium 10.6 mg/dl (8.6-10.4); Carbon Dioxide 26 mmol/L (22-30); Chloride 96 mmol/L (96-108); Glomerular Filtration Rate 39; Glucose 112 mg/dL (70-105)
[2019-03-15] MEDS ORDERED: MAGNESIUM OXIDE 400 MG TABLET PO SCH (09:00)
[2019-03-15] MEDS ORDERED: ASPIRIN 81 MG TAB.CHEW PO SCH (09:00)
[2019-03-15] MEDS ORDERED: FUROSEMIDE 40 MG TABLET PO SCH (09:00)
--- NOTE | 2019-03-15 09:11 | Discharge Summary ---
Medical - DS: Prov Patient information: Note initiated : 03/15/19 at 9:04 am Service Date, if different from initiated Date: [] Patient: Jeanne Stover 78 y/o F admitted on 03/14/19 for SOA. Chief Complaint: [] Date of admission: 03/14/19 00:45 Discharge date: 03/15/19 Primary care physician: Vitaliy Hardy DO Admitting clinician: Tana Yin Consults: 03/14/19 07:38 Consult to Physician [CONS] Routine Comment: Consulting Provider: Tana Yin Reason For Exam: Physician to Consult Discharging clinician: Tana Yin Medical - DS: Meds - Discharge Medications Active and Home Medications: Home Medications aspirin 81 mg tablet,delayed release 81 mg PO QDAY tab 02/27/15 [History Confirmed 03/14/19 Last Taken Unknown] ferrous sulfate 325 mg (65 mg iron) tablet 325 mg PO QDAY 03/26/16 [History Confirmed 03/14/19 Last Taken Unknown] cholecalciferol (vitamin D3) 400 unit capsule 400 unit PO QDAY 05/18/17 [History Confirmed 03/14/19 Last Taken Unknown] magnesium oxide 400 mg (241.3 mg magnesium) tablet 400 mg PO QDAY tab 07/27/17 [History Confirmed 03/14/19 Last Taken Unknown] oxybutynin chloride ER 10 mg tablet,extended release 24 hr 10 mg PO BID #180 tab 05/10/18 [Rx Confirmed 03/14/19 Last Taken Unknown] hydralazine 25 mg tablet 12.5 mg PO BID tab 05/19/18 [History Confirmed 03/14/19 Last Taken Unknown] alendronate 70 mg tablet 70 mg PO QWEEK #12 tab 07/14/18 [Rx Confirmed 03/14/19 Last Taken Unknown] potassium chloride ER 10 mEq tablet,extended release 10 meq PO QAMCC tab 11/09/18 [History Confirmed 03/14/19 Last Taken Unknown] amlodipine 10 mg tablet 10 mg PO QDAY #90 tab 12/30/18 [Rx Confirmed 03/14/19 Last Taken Unknown] clonidine HCl 0.3 mg tablet 0.3 mg PO BID #60 tab 02/25/19 [Rx Confirmed 03/14/19 Last Taken Unknown] Furosemide [Lasix] 20 mg PO BID 03/14/19 [History Confirmed 03/14/19 Last Taken Unknown] LORazepam [Ativan] 1 mg PO BIDP PRN 03/14/19 [History Confirmed 03/14/19 Last Taken Unknown] Levothyroxine Sodium [Synthroid] 137 mcg PO QAMAC 03/14/19 [History Confirmed 03/14/19 Last Taken Unknown] Metoprolol Succinate [Toprol Xl] 50 mg PO DAILY 03/14/19 [History Confirmed 03/14/19 Last Taken Unknown] Metoprolol Succinate [Toprol Xl] 100 mg PO HS 03/14/19 [History Confirmed 03/14/19 Last Taken Unknown] Medical - DS: Hosp Hospital Course: Patient had abrupt onset of shortness of breath at about 5:30 PM on the day of admission. She tells me it was her congestive heart failure and she felt the fluid building in her lungs. In retrospect she noted that she had started coughing a bit earlier in the day and felt a rattling in her chest which has happened on previous occasions when she has had heart failure. She was producing some clear sputum. She took a dose of her Lasix (20 mg) at home, did not have a diuretic effect, repeated the dose without effect. During this time she could not lie down due to dyspnea, and indeed had gone from sitting upright with dyspnea to having to bend over to try to catch her breath. She notes that over the last few days she does not think her furosemide has been producing diuresis as usual. Over the last couple of weeks she is gained about 5 pounds. She does have some chronic lower extremity edema which is about the same. She has had no change in her diet or medication regimen. She occasionally gets up at night with a similar dyspneic and rattling feeling, treated with an oral furosemide until it improves. This occurred most recently a couple of nights ago. Her blood pressure at home this morning was 134/71, she checks it daily. Patient as noted was feeling well yesterday, was feeling fine until afternoon today. She is had no fever, no chills. No chest pain no chest tightness or squeezing. No pleuritic pain. No purulent sputum. In the emergency department, the patient was in hypoxic respiratory failure requiring supplemental oxygen up to a nonrebreather at times. Evaluation showed bilateral alveolar infiltrates, concerning for pneumonia. Her white count was 10,000. Her temperature was normal. Blood pressure was high normal to elevated . Pulse was in the 80-100 range. She received antibiotics for pneumonia, received 40 mg of furosemide with significant diuresis after IV administration. When I see the patient, she states she is feeling much better with a significant improvement in her shortness of breath after the diuretic. She is being admitted for the treatment of acute hypoxic respiratory failure, suspected heart failure, rule out pneumonia (addendum 03/15: Ruled out). eels significantly improved today. No longer on oxygen. No cough or sputum production. No fevers. Follow-up radiograph shows clearing of infiltr ates overnight. Pneumonia ruled out. atient feels quite well. No dyspnea, ambulating without shortness of breath. Remains off of oxygen. Echocardiogram shows normal IVC inspiratory collapse, there is mildly reduced LV systolic function, there was difficult to estimate EF due to difficulty in delineating the LV endocardium. In retrospect, given her clinical course this was acute on chronic diastolic congestive heart failure. Patient was seen in the ED shortly before midnight on the evening of 03/13, as anticipated to require at least 2 midnights in the hospital. She did not reach the floor into early in the morning 03/14, but had unexpectedly rapid and significant improvement in the next 36 hours and was stable for discharge. Discharge diagnosis: Acute on chronic diastolic congestive heart failure Secondary discharge diagnosis: Acute hypoxic respiratory failure, resolved Hypertensive heart disease Chronic diastolic heart failure - Time Spent with Patient Total time spent providing and/or coordinating discharge services: Greater than 30 minutes Medical - DS: Exam - Constitutional Vitals: Vital Signs Temp Pulse Resp BP Pulse Ox 03/15/19 06:54 98.2 F 110/67 95 03/15/19 03:00 70 16 115/73 100 03/15/19 00:00 98.2 F 68 18 108/80 95 03/14/19 20:00 95 03/14/19 19:41 98.0 F 85 16 102/85 94 03/14/19 15:33 98.0 F 16 107/62 03/14/19 12:00 98.5 F 87 20 142/88 93 Intake and Output 03/14/19 03/15/19 03/15/19 21:59 05:59 13:59 Intake Total 320 720 Output Total 825 225 Balance -825 95 720 Intake: Oral 320 720 Output: Void Amount 825 225 Other: Meal Breakfast Percent of Meal Consumed 75% Feeding Ability Independent Urine Appearance Clear Clear Urine Color Pale Dark Yellow Weight 143 lb 3.2 oz Additional comments: General: Sitting up in chair in no acute distress Chest: Clear, no rales, unlabored Cardiovascular: Regular, trace lower extremity edema Abdomen: Soft, nontender Neuro: Alert, oriented, nonfocal. Medical - DS: Data Labs on day of discharge: Labs from last 24 hours 03/15/19 03/15/19 07:22 07:22 WBC 7.0 RBC 5.17 Hgb 14.4 Hct 44.2 MCV 85.4 MCH 27.9 MCHC 32.6 RDW 14.9 H Plt Count 235 MPV 10.2 Gran % 67.1 Lymph % (Auto) 21.1 [place] % (Auto) 10.4 Eos % (Auto) 0.8 Baso % (Auto) 0.6 Gran # 4.7 Lymph # (Auto) 1.5 [place] # (Auto) 0.7 Eos # (Auto) 0.1 Baso # (Auto) 0 Sodium 137 Potassium 4.0 Chloride 96 Carbon Dioxide 26 Anion Gap 15.0 BUN 23 Creatinine 1.3 H GFR Calculation 39 Glucose 112 H Calcium 10.6 H - Impressions Date of Service: 03/13/19 Procedure(s): XR chest 1V FINDINGS: Large alveolar infiltrates are present throughout both lungs with the greatest consolidation in the lower lobes, right worse than left. The heart is mildly enlarged. Pulmonary vessels are obscured by the infiltrates. The infiltrates have become worse bilaterally since 12/24/17. Heart is larger today. There are surgical clips in the axillary portion left breast. IMPRESSION: Severe infiltrates in both lungs. The pattern is more suggestive of pneumonia rather than pulmonary edema. Date of Service: 03/14/19 Procedure(s): XR chest 2V FINDINGS: The heart size, mediastinum and pulmonary vessels are unremarkable. Bilateral mid and lower lung infiltrates have almost totally cleared since yesterday's study with only minimal residual in the right infrahilar region. There are no effusions. Right calcified breast implant contributes to increased density in the right lung base. IMPRESSION: Complete resolution in bilateral mid and lower lung infiltrates. Echocardiogram 03/14/2019 The left ventricle is normal in size There is normal left ventricular wall thickness Left ventricular systolic function is mildly reduced, ejection fraction 45-50% Left atrium is mildly dilated There is mild mitral regurgitation The IVC measures normal and shows normal inspiratory collapse Since 03/05/2017 LVEF may be lower, though LV endocardium is difficult to delineate on the current study. Medical - DS: A/P - Patient/Caregiver Discharge Instructions Activity: increase activity as tolerated Diet: Low Sodium (2gm), Consistent Carbohydrate - Problem Maintenance (1) Acute respiratory failure with hypoxia Status: Resolved (2) Acute on chronic diastolic congestive heart failure Status: Resolved (3) Hypertensive heart disease Status: Chronic Qualifiers: Heart failure presence: without heart failure Qualified Code(s): I11.9 - Hypertensive heart disease without heart failure - Follow up Plan Follow up with: Guillermo Storey MD [Physician] - (follow up at wound healing as new patient for coccyx wound) Joao Sutton MD [Physician] - (7-10 days) Vitaliy Hardy DO [Primary Care Provider] - 03/30/19 4:45 pm Disposition: Home, Self-Care Care Plan Goals: This discharge packet is provided to you to help keep you informed about your care. We want to ensure you get everything you need when you go home. You will also be receiving a call from us in a few days to follow up with you and see how you are doing since your discharge. This gives us a chance to listen to any concerns you maybe experiencing since you were discharged or any additional needs you may have, as well as providing us feedback on your care experience. We strive to always provide excellent care and thank you for your feedback and for choosing [facility]. Prognosis: Good Rehab Potential: Good Overall status at discharge: patient is back to baseline Medical - DS: Qual - VTE Deep Vein Thrombosis/Pulmonary Embolism Present on Admission: No
== END 2019-03-15 14:40 | disposition home or self-care (01) | DRG 291 ==
LOC: ED 19:22 → ICU 03-14 00:45
PROVIDERS: ADMIT Internal Medicine; ATTEND Internal Medicine

== ENCOUNTER 2019-05-24 08:03 | Inpatient (IN) ==
[2019-05-24] MEDS ORDERED: NITROGLYCERIN 1 GM OINT.TOP TD ONE (08:09)
[2019-05-24] MEDS ORDERED: NITROGLYCERIN 0.4 MG TAB.SUBL SL ONE ×2 (08:09→08:11)
[2019-05-24] MEDS ORDERED: ASPIRIN 81 MG TAB.CHEW CHEWED ONE (08:15)
--- NOTE | 2019-05-24 08:15 | Emergency Department Note ---
SOB HPI - General Chief Complaint: Shortness of Breath/Dyspnea Stated Complaint: shortness of breath, diaphoretic Time Seen by Provider: 05/24/19 08:08 Source: patient Mode of arrival: ambulatory Limitations: no limitations - History of Present Illness Shortness of breath which started yesterday, gradually progressive. She denies chest pain, called EMS this morning and when EMS arrived, her O2 sats were less than 90%, they put on 3 L nasal cannula. She felt better after that. The. Has been taking her blood pressure medication, normally takes metoprolol as well as clonidine and hydralazine. No recent fevers, she has a slight cough, nonproductive., Feels like her breathing is getting worse. The. No abdominal pain, no nausea, vomiting, diarrhea, denies ankle swelling. MD Complaint: shortness of breath - Related Data Home Medications Medication Instructions Recorded Confirmed aspirin 81 mg tablet,delayed 81 mg PO QDAY tab 02/27/15 04/18/19 release ferrous sulfate 325 mg (65 mg 325 mg PO QDAY 03/26/16 04/18/19 iron) tablet cholecalciferol (vitamin D3) 400 400 unit PO QDAY 05/18/17 04/18/19 unit capsule magnesium oxide 400 mg (241.3 mg 400 mg PO QDAY tab 07/27/17 04/18/19 magnesium) tablet hydralazine 25 mg tablet 12.5 mg PO BID tab 05/19/18 04/18/19 potassium chloride 10 mEq 10 meq PO QAMCC tab 11/09/18 04/18/19 tablet,extended release Furosemide [Lasix] 20 mg PO BID 03/14/19 04/18/19 LORazepam [Ativan] 1 mg PO BIDP PRN 03/14/19 04/18/19 metoprolol succinate 100 mg 50 mg PO .QAM and 100mg QHS tab 03/30/19 04/18/19 tablet,extended release 24 hr oxybutynin chloride 10 mg 10 mg PO QDAY tab 04/18/19 04/18/19 tablet,extended release 24 hr Previous Rx's Medication Instructions Recorded alendronate 70 mg tablet 70 mg PO QWEEK #12 tab 07/14/18 amlodipine 10 mg tablet 10 mg PO QDAY #90 tab 12/30/18 clonidine HCl 0.3 mg tablet 0.3 mg PO BID #60 tab 02/25/19 paroxetine HCl 20 mg tablet 20 mg PO QHS #30 tab 03/30/19 losartan 50 mg tablet 50 mg PO QDAY #90 tab 04/06/19 metformin 500 mg tablet 500 mg PO QDAY #90 tab 04/18/19 pantoprazole 40 mg tablet,delayed 40 mg PO QDAY #90 tab 04/18/19 release simvastatin 20 mg tablet 20 mg PO QDAY #90 tab 04/18/19 levothyroxine 137 mcg tablet 137 mcg PO QAM #90 tab 05/16/19 Allergies Allergy/AdvReac Type Severity Reaction Status Date / Time adhesive tape Allergy Unknown Unknown Verified 05/24/19 08:11 codeine Allergy Unknown Unknown Verified 05/24/19 08:11 Tape Allergy Unknown Unknown Uncoded 04/18/19 17:10 Review of Systems All systems ED: reviewed and negative except as stated. Constitutional: Denies: fever, chills ENT ED: Denies: throat pain Cardiovascular: Reports: dyspnea on exertion. Denies: chest pain Respiratory: Reports: shortness of breath, cough. Denies: phlegm Past Medical History - Past Medical History Source: nursing notes reviewed Medical history: Reports: cancer (Carcinoma in situ left breast.), CHF, DM (type 2, not on insulin.), GERD, hyperlipidemia, hypertension, hypothyroidism, thyroid disease (Thyroid nodule.), other (First-degree AV block. Hypertensive heart disease. Bradycardia. Low back pain. PVCs. Anemia. Parathyroid adenoma. Pneumonia. Osteopenia. Osteoarthritis of fingers and lower spine. Metabolic syndrome. Hyperparathyroidism. Hypercalcemia. 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 Esophageal stricture. Diverticulosis, sigmoid. Colon adenoma.) Psychiatric history: Reports: anxiety Surgical history ED: Reports: appendectomy (1953.), breast surgery (Mastectomy, 1995 with radical reconstruction. Bilateral implants 1979. Reconstruction, left, 2000.), cataract (Bilateral.), ALEXIS/BSO, thyroidectomy (Partial, right bridgett-.), tonsillectomy (1942.), other (Parathyroidectomy, 2009.) Family history: Reports: non-contributory - Social History smoking status: Never smoker Alcohol use: Reports: None Physical Exam Limitations: no limitations General appearance: alert, in no apparent distress Head: atraumatic, normocephalic, normal inspection Eye: Present: normal appearance, PERRL, EOMI. Absent: conjunctival injection ENT: Present: normal exam, normal oropharynx, mucous membranes moist, TM's normal bilaterally, normal external ear exam Neck: Present: normal inspection, full ROM, trachea midline. Absent: tenderness, meningismus Respiratory: Present: rales/crackles. Absent: wheezes, stridor Cardiovascular: Present: regular rate, normal rhythm, other (multiple PVCs) Abdominal: Present: soft, normal bowel sounds. Absent: distention, tenderness Extremities: Present: normal inspection, full ROM, pedal edema, other (trace pedal edema) Back: Present: normal inspection, full ROM. Absent: CVA tenderness (R), CVA tenderness (L) Neurological: Present: alert, oriented X3, CN II-XII intact. Absent: motor sensory deficit Psychiatric: Present: depressed Skin: Present: warm, dry, normal color Course - Reevaluation(s) Reevaluation #1: Chest x-ray reviewed. Presentation is consistent with CHF. Bilateral pulmonary infiltrates, likely CHF, associated hypertension. Patient signed out to Dr. benton. 9 AM. At this point, we will start her on Lasix a, she was already given nitroglycerin to lower her blood pressure Vital Signs Temperature 97.4 F 05/24/19 08:03 Pulse Rate 87 05/24/19 08:03 Respiratory Rate 22 05/24/19 08:03 Blood Pressure 153/123 05/24/19 08:03 Pulse Oximetry (%) 89 L 05/24/19 08:03 Temperature 97.4 F 05/24/19 08:03 Pulse Rate 87 05/24/19 08:03 Respiratory Rate 22 05/24/19 08:03 Blood Pressure 153/123 05/24/19 08:03 Pulse Oximetry (%) 89 L 05/24/19 08:03 Shortness of Breath/Dyspnea - Lab Data Result diagrams: 05/24/19 08:20 05/24/19 08:20 Disposition Pt seen by SUPPORT SERVICES TECH/PA only: No Clinical Impression: Heart failure Disposition: Still a Patient Condition: Fair Referrals: Vitaliy Hardy DO [Primary Care Provider] -
[2019-05-24] MEDS ORDERED: ENALAPRILAT 1.25 MG/ML VIAL IV ONE (08:18)
[2019-05-24] MEDS ORDERED: 0.45 % SODIUM CHLORIDE 1,000 ML IV SCH (08:30)
[2019-05-24] MEDS ORDERED: FUROSEMIDE 20 MG/2 ML VIAL IV ONE (08:31)
--- NOTE | 2019-05-24 08:33 | XRay Report ---
HISTORY: Shortness of breath FINDINGS: There are moderate to severe diffuse alveolar opacities in both lungs. The greatest involvement is in the lower half of the left lung. Similar findings were present on a prior x-ray done on 03/13/19. The heart is mildly enlarged. There may be a small subpulmonic pleural effusion on the right. Surgical clips are present in the left axilla. No lytic or blastic lesion are identified. IMPRESSION: Moderately severe diffuse bilateral alveolar infiltrates. This may be pulmonary edema or bilateral pneumonia Interpreted and Authenticated by: Vladimir Alas 05/24/19
[2019-05-24 08:55] LABS: Basophils # (Auto) 0.1 K/mcL (0.0-0.3); Basophils % (Auto) 0.7 % (0.0-2.0); Eosinophils # (Auto) 0.1 K/mcL (0.0-0.7); Eosinophils % (Auto) 0.9 % (0.0-7.0); Granulocytes % (Auto) 72.7 % (38.0-78.0); Hematocrit 42.6 % (36.0-48.0); Hemoglobin 13.7 g/dL (12.0-15.0); Lymphocytes # (Auto) 1.7 K/mcL (1.5-4.8); Lymphocytes % (Auto) 19.8 % (15.5-49.0); Mean Cell Volume 87.5 fL (80.0-100.0); Mean Corpuscular HGB Conc 32.1 g/dL (31.0-36.0); Mean Platelet Volume 10.1 fL (7.4-10.4); Monocytes # (Auto) 0.5 K/mcL (0.1-0.9); Monocytes % (Auto) 5.9 % (1.0-12.0); Platelet Count 235 K/mcL (140-440); RBC 4.87 M/mcL (4.00-5.20); WBC 8.4 K/mcL (4.5-11.0)
[2019-05-24 09:28] LABS: ALT/SGPT 55 U/l (0-40); AST/SGOT 49 U/l (0-37); Albumin 4.2 gm/dL (3.2-5.2); Albumin/Globulin Ratio 1.4 (1.0-2.3); Alkaline Phosphatase 102 U/L (39-117); Bilirubin,Total 0.6 mg/dL (0.0-1.0); Blood Urea Nitrogen 20 mg/dl (8-23); Calcium 10.3 mg/dl (8.6-10.4); Carbon Dioxide 17 mmol/L (22-30); Globulin 2.9 gm/dL (2.2-3.7); Glomerular Filtration Rate 36; Glucose 355 mg/dL (70-105)
[2019-05-24 09:30] LABS: Chloride 93 mmol/L (96-108)
--- NOTE | 2019-05-24 09:46 | Emergency Department Note ---
SOB HPI - General Chief Complaint: Shortness of Breath/Dyspnea Stated Complaint: shortness of breath, diaphoretic Time Seen by Provider: 05/24/19 08:08 Source: patient Mode of arrival: ambulatory Limitations: no limitations - History of Present Illness I took over care of this patient at [address] Pulido. She does have a history of heart failure takes Lasix daily. She has not had a lot of edema recently but she became short of breath and slightly hypoxic. She has had no chest pain. - Related Data Home Medications Medication Instructions Recorded Confirmed aspirin 81 mg tablet,delayed 81 mg PO QDAY tab 02/27/15 04/18/19 release ferrous sulfate 325 mg (65 mg 325 mg PO QDAY 03/26/16 04/18/19 iron) tablet cholecalciferol (vitamin D3) 400 400 unit PO QDAY 05/18/17 04/18/19 unit capsule magnesium oxide 400 mg (241.3 mg 400 mg PO QDAY tab 07/27/17 04/18/19 magnesium) tablet hydralazine 25 mg tablet 12.5 mg PO BID tab 05/19/18 04/18/19 potassium chloride 10 mEq 10 meq PO QAMCC tab 11/09/18 04/18/19 tablet,extended release Furosemide [Lasix] 20 mg PO BID 03/14/19 04/18/19 LORazepam [Ativan] 1 mg PO BIDP PRN 03/14/19 04/18/19 metoprolol succinate 100 mg 50 mg PO .QAM and 100mg QHS tab 03/30/19 04/18/19 tablet,extended release 24 hr oxybutynin chloride 10 mg 10 mg PO QDAY tab 04/18/19 04/18/19 tablet,extended release 24 hr Previous Rx's Medication Instructions Recorded alendronate 70 mg tablet 70 mg PO QWEEK #12 tab 07/14/18 amlodipine 10 mg tablet 10 mg PO QDAY #90 tab 12/30/18 clonidine HCl 0.3 mg tablet 0.3 mg PO BID #60 tab 02/25/19 paroxetine HCl 20 mg tablet 20 mg PO QHS #30 tab 03/30/19 losartan 50 mg tablet 50 mg PO QDAY #90 tab 04/06/19 metformin 500 mg tablet 500 mg PO QDAY #90 tab 04/18/19 pantoprazole 40 mg tablet,delayed 40 mg PO QDAY #90 tab 04/18/19 release simvastatin 20 mg tablet 20 mg PO QDAY #90 tab 04/18/19 levothyroxine 137 mcg tablet 137 mcg PO QAM #90 tab 05/16/19 Allergies Allergy/AdvReac Type Severity Reaction Status Date / Time adhesive tape Allergy Unknown Unknown Verified 05/24/19 08:11 codeine Allergy Unknown Unknown Verified 05/24/19 08:11 Tape Allergy Unknown Unknown Uncoded 04/18/19 17:10 Review of Systems Constitutional: Denies: fever, chills ENT ED: Denies: throat pain Cardiovascular: Reports: dyspnea on exertion. Denies: chest pain Respiratory: Reports: shortness of breath, cough. Denies: phlegm Past Medical History - Past Medical History Medical history: Reports: cancer (Carcinoma in situ left breast.), CHF, DM (type 2, not on insulin.), GERD, hyperlipidemia, hypertension, hypothyroidism, thyroid disease (Thyroid nodule.), other (First-degree AV block. Hypertensive heart disease. Bradycardia. Low back pain. PVCs. Anemia. Parathyroid adenoma. Pneumonia. Osteopenia. Osteoarthritis of fingers and lower spine. Metabolic syndrome. Hyperparathyroidism. Hypercalcemia. 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 Esophageal stricture. Diverticulosis, sigmoid. Colon adenoma.) Psychiatric history: Reports: anxiety Surgical history ED: Reports: appendectomy (1953.), breast surgery (Mastectomy, 1995 with radical reconstruction. Bilateral implants 1979. Reconstruction, left, 2000.), cataract (Bilateral.), ALEXIS/BSO, thyroidectomy (Partial, right bridgett-.), tonsillectomy (1942.), other (Parathyroidectomy, 2009.) - Social History smoking status: Never smoker Alcohol use: Reports: None Physical Exam Limitations: no limitations General appearance: alert, in no apparent distress Course Vital Signs Temperature 97.4 F 05/24/19 08:03 Pulse Rate 87 05/24/19 08:03 Respiratory Rate 22 05/24/19 08:03 Blood Pressure 153/123 05/24/19 08:03 Pulse Oximetry (%) 89 L 05/24/19 08:03 Temperature 97.4 F 05/24/19 08:03 Pulse Rate 70 05/24/19 09:41 Respiratory Rate 14 05/24/19 09:41 Blood Pressure 139/97 05/24/19 09:41 Pulse Oximetry (%) 94 11/12/19 09:41 Shortness of Breath/Dyspnea - [facility] Narrative Medical decision making narrative: Chest x-ray shows pulmonary edema and her BNP was 28,000. Her troponin was negative. EKG showed left bundle branch block. She has started to respond some to the Lasix that Dr. Pulido gave her IV. She is comfortable with her O2 saturation at 92% on 2 L of oxygen. We will admit her to the hospital for joseph estive heart failure. - Lab Data Lab results reviewed: Yes I reviewed the patient's lab results. Result diagrams: 05/24/19 08:20 05/24/19 08:20 Lab Results 05/24/19 05/24/19 05/24/19 Range/Units 08:20 08:20 08:20 WBC 8.4 (4.5-11.0) K/mcL RBC 4.87 (4.00-5.20) M/mcL Hgb 13.7 (12.0-15.0) g/dL Hct 42.6 (36.0-48.0) % MCV 87.5 (80.0-100.0) fL MCH 28.1 (26.0-34.0) pg MCHC 32.1 (31.0-36.0) g/dL RDW 16.0 H (11.5-14.5) % Plt Count 235 (140-440) K/mcL MPV 10.1 (7.4-10.4) fL Gran % 72.7 (38.0-78.0) % Lymph % (Auto) 19.8 (15.5-49.0) % [place] % (Auto) 5.9 (1.0-12.0) % Eos % (Auto) 0.9 (0.0-7.0) % Baso % (Auto) 0.7 (0.0-2.0) % Gran # 6.1 (1.8-8.0) K/mcL Lymph # (Auto) 1.7 (1.5-4.8) K/mcL [place] # (Auto) 0.5 (0.1-0.9) K/mcL Eos # (Auto) 0.1 (0.0-0.7) K/mcL Baso # (Auto) 0.1 (0.0-0.3) K/mcL Sodium 130 L (133-145) mmol/L Potassium 4.4 (3.3-5.1) mmol/L Chloride 93 L (96-108) mmol/L Carbon Dioxide 17 L (22-30) mmol/L Anion Gap 20.0 H (8-16) BUN 20 (8-23) mg/dl Creatinine 1.4 H (0.6-1.1) mg/dl GFR Calculation 36 Glucose 355 H (70-105) mg/dL Calcium 10.3 (8.6-10.4) mg/dl Total Bilirubin 0.6 (0.0-1.0) mg/dL AST 49 H (0-37) U/l ALT 55 H (0-40) U/l Alkaline Phosphatase 102 (39-117) U/L Troponin T < 0.01 (0-0.03) ng/ml NT-Pro-B Natriuret Pep 84399.0 H (0-450) pg/ml Total Protein 7.1 (5.9-8.4) gm/dL Albumin 4.2 (3.2-5.2) gm/dL Globulin 2.9 (2.2-3.7) gm/dL Albumin/Globulin Ratio 1.4 (1.0-2.3) - Radiology Data Radiology results reviewed: Yes I reviewed the patient's radiology results. Disposition Pt seen by NUCLEAR EQUIPMENT TEST ENGINEER/PA only: No Clinical Impression: Heart failure Disposition: Xfer As Outpt/Obs ([facility]) Condition: Good Referrals: Vitaliy Hardy DO [Primary Care Provider] - Time of Disposition: 09:46
[2019-05-24] MEDS ORDERED: IPRATROPIUM/ALBUTEROL 3 ML AMPUL.NEB NEB PRN (11:26)
[2019-05-24] MEDS ORDERED: POTASSIUM CHLORIDE 40 MEQ in DEXTROSE 5% IN WATER 500 ML IV PRN (11:26)
[2019-05-24] MEDS ORDERED: MAGNESIUM SULFATE 2 GM/50 ML BAG IV PRN (11:26)
[2019-05-24] MEDS ORDERED: MELATONIN 3 MG TABLET PO PRN (11:26)
[2019-05-24] MEDS ORDERED: POTASSIUM CHLORIDE 20 MEQ PACKET PO PRN (11:26)
[2019-05-24] MEDS ORDERED: DEXTROSE 31 GM ORAL.SUSP PO PRN (11:26)
[2019-05-24] MEDS ORDERED: ACETAMINOPHEN 650 MG/65 ML BOTTLE IV PRN (11:26)
[2019-05-24] MEDS ORDERED: ACETAMINOPHEN 325 MG TABLET PO PRN (11:26)
[2019-05-24] MEDS ORDERED: DEXTROSE 50% 50 ML VIAL IV PRN (11:26)
[2019-05-24] MEDS: ONDANSETRON 4 MG/2 ML VIAL IV PRN ×2 (13:43→18:52)
[2019-05-24] MEDS: INSULIN LISPRO 1 UNIT/0.01 ML UNIT SQ SCH ×3 (13:45→21:20)
[2019-05-24] MEDS: FUROSEMIDE 40 MG/4 ML VIAL IV SCH ×2 (14:00→21:56)
[2019-05-24] MEDS: 0.9 % SODIUM CHLORIDE 10 ML SYRINGE IV SCH ×3 (14:00→21:56)
[2019-05-24] MEDS ORDERED: PROMETHAZINE 25 MG/ML VIAL ONE (14:09)
[2019-05-24] MEDS ORDERED: PROMETHAZINE 25 MG/ML VIAL IV PRN (14:12)
--- NOTE | 2019-05-24 14:39 | Internal Med History&Physical ---
Medical - H&P: [facility] Patient information: Note initiated : 05/24/19 at 2:35 pm Service Date, if different from initiated Date: [] Patient: Jeanne Stover a 78 y/o F admitted on 05/24/19 for Shortness Of Breath, Diaphoretic. Chief Complaint: [] Chief complaint: Shortness of breath History of present illness: Ms. Stover is a 78 year old F with known history of diastolic CHF/T2 DM/HTN and PAD who was recently hospitalized in early March with decompensated heart failure with preserved ejection fraction. Patient has been doing well since discharge however over the last couple of days has noted increasing shortness of breath, fatigue and decreased effort tolerance. She has become dyspnea at rest with associated orthopnea. She denies associated fever or chills or chest pain but endorses to frothy white sputum. She endorses taking increasing salt in her diet and has not been checking her weights daily. She is currently on twice daily Lasix but has not really helped with her symptoms over the last few days. Initial work-up in the ER was consistent with pulmonary edema with CHF bilateral infiltrates. Patient was found to be hypertensive and started on nitroglycerin and Lasix. Subsequently hospitalist service was consulted At the time of evaluation patient is alert and oriented. She was accompanied by her who is currently not in the room. She is able to answer most of the questions and provide history as above. She denies fever chills, lightheadedness dizziness but endorses to frequent urination and incontinence and using diapers. She denies diarrhea, chest pain, fever or sick contacts. Review of systems A 10 point review of system was performed and is negative except was discussed above Medical - H&P: PMH Medical history: Stress (Chronic) Osteoporosis (Chronic) Congestive heart failure (Resolved) Pulmonary edema (Resolved) Hypoxia (Resolved) Diabetes mellitus type 2 in nonobese (Chronic) PVD (peripheral vascular disease) (Chronic) PVC (premature ventricular contraction) (Chronic) First degree AV block (Chronic) Hypertensive heart disease (Chronic) Bradycardia (Chronic) Abnormal laboratory test (Chronic) Metabolic Syndrome X (Chronic) Low back pain (Chronic) Uncontrolled hypertension (Chronic) Ventricular ectopy (Chronic) Anxiety (Chronic) Anemia (Chronic) Abnormal EKG (Resolved) Hyponatremia (Resolved) Nausea & vomiting (Resolved) Hypertensive urgency (Resolved) Sciatica of right side (Chronic) Edema (Chronic) History of hysterectomy (Resolved) Parathyroid gland disorder (Chronic) Stress reaction (Chronic) Pneumonia (Resolved) Osteopenia (Chronic) Osteoarthritis (Chronic) Onychomycosis (Chronic 02/21/14) Metabolic syndrome (Chronic) Joint disorder (Resolved) Hyperparathyroidism, primary (Chronic) Hypothyroidism (Chronic) Hyperlipidemia (Chronic) Hypercalcemia (Chronic) HTN (hypertension) (Chronic) 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) Gastroesophageal reflux (Chronic) Fatigue (Chronic) Esophageal stricture (Chronic) Diverticulosis of colon (Chronic) Diabetes mellitus, type II (Chronic) Degenerative joint disease (Chronic) Syncope (Resolved) Thyroid nodule (Chronic) Toe fracture (Resolved) Colon adenoma (Chronic) Bronchitis (Chronic) Status of breast implant (Chronic 11/25/12) Carcinoma in situ of breast (Resolved) Arrhythmia (Chronic) Actinic keratosis (Chronic) Achilles bursitis (Resolved) 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) Trigger finger, acquired (Chronic) Surgical history: Hx of partial thyroidectomy (Resolved) History of parathyroidectomy (Resolved) History of breast reconstruction (Resolved) History of salpingoophorectomy (Resolved) History of left mastectomy (Resolved) History of tonsillectomy (Resolved) History of esophagogastroduodenoscopy (Resolved 03/10/14) History of colonoscopy (Chronic Unknown) History of cataract surgery (Resolved) History of cardiac catheterization (Resolved 12/18/10) History of breast surgery (Resolved) History of appendectomy (Resolved) Pertinent family history: Sister Diabetes mellitus Uncle Family history of malignant neoplasm Brother Hyperlipidemia Essential hypertension Mother Malignant neoplasm of stomach Grandmother(maternal) Malignant neoplasm of stomach Social history: Patient lives with her . She occasionally has alcoholic drink. She does not smoke tobacco. Medical - H&P: Meds Home Medications Medication Instructions Recorded Confirmed Type aspirin 81 mg tablet,delayed 81 mg PO QDAY tab 02/27/15 05/24/19 History release ferrous sulfate 325 mg (65 mg 325 mg PO QDAY 03/26/16 05/24/19 History iron) tablet cholecalciferol (vitamin D3) 400 400 unit PO QDAY 05/18/17 05/24/19 History unit capsule magnesium oxide 400 mg (241.3 mg 400 mg PO QDAY tab 07/27/17 05/24/19 History magnesium) tablet hydralazine 25 mg tablet 12.5 mg PO BID tab 05/19/18 05/24/19 History alendronate 70 mg tablet 70 mg PO QWEEK #12 tab 07/14/18 05/24/19 Rx potassium chloride 10 mEq 10 meq PO QAMCC tab 11/09/18 05/24/19 History tablet,extended release clonidine HCl 0.3 mg tablet 0.3 mg PO BID #60 tab 02/25/19 05/24/19 Rx Furosemide [Lasix] 20 mg PO BID 03/14/19 05/24/19 History LORazepam [Ativan] 1 mg PO BIDP PRN 03/14/19 05/24/19 History metoprolol succinate 100 mg 50 mg PO QAM tab 03/30/19 05/24/19 History tablet,extended release 24 hr paroxetine HCl 20 mg tablet 20 mg PO QHS #30 tab 03/30/19 05/24/19 Rx losartan 50 mg tablet 50 mg PO QDAY #90 tab 04/06/19 05/24/19 Rx metformin 500 mg tablet 500 mg PO QDAY #90 tab 04/18/19 05/24/19 Rx oxybutynin chloride 10 mg 10 mg PO QDAY tab 04/18/19 05/24/19 History tablet,extended release 24 hr pantoprazole 40 mg tablet,delayed 40 mg PO QDAY #90 tab 04/18/19 05/24/19 Rx release simvastatin 20 mg tablet 20 mg PO QDAY #90 tab 04/18/19 05/24/19 Rx levothyroxine 137 mcg tablet 137 mcg PO QAM #90 tab 05/16/19 05/24/19 Rx Allergies Allergy/AdvReac Type Severity Reaction Status Date / Time adhesive tape Allergy Unknown Unknown Verified 05/24/19 08:11 codeine Allergy Unknown Unknown Verified 05/24/19 08:11 Medical - H&P: Exam - Constitutional Vitals: Temp Pulse Resp BP Pulse Ox 97.7 F 78 15 148/91 94 05/24/19 11:00 05/24/19 12:18 05/24/19 13:46 05/24/19 13:46 05/24/19 12:18 General appearance: no acute distress Exam: Mild short of breath but no anxiety agitation. Alert and oriented Able to talk in full sentences Head normocephalic Oral cavity dry no ear nose discharge No lymphadenopathy Neck JVD positive S1-S2 regular rhythm Diminished breath sounds bases with late inspiratory crackles Abdomen soft nontender Lower extremity no cyanosis clubbing no joint swelling minimal lymphedema Skin no suspicious lesion Psych alert cooperative mild anxiety Neuro nonfocal Medical - H&P: Reslt - Labs CBC & Chem 7: 05/24/19 08:20 05/24/19 08:20 Labs: Short CBC 05/24/19 Range/Units 08:20 WBC 8.4 (4.5-11.0) K/mcL Hgb 13.7 (12.0-15.0) g/dL Hct 42.6 (36.0-48.0) % Plt Count 235 (140-440) K/mcL BMP 05/24/19 08:20 Sodium 130 L Potassium 4.4 Chloride 93 L Carbon Dioxide 17 L BUN 20 Creatinine 1.4 H Glucose 355 H Calcium 10.3 Cardiac Enzymes 05/24/19 Range/Units 08:20 Troponin T < 0.01 (0-0.03) ng/ml Liver Function 05/24/19 Range/Units 08:20 Total Bilirubin 0.6 (0.0-1.0) mg/dL AST 49 H (0-37) U/l ALT 55 H (0-40) U/l Alkaline Phosphatase 102 (39-117) U/L Albumin 4.2 (3.2-5.2) gm/dL Medical - H&P: A/P (1) Acute respiratory failure with hypoxia Current visit: No Status: Resolved (2) Acute on chronic diastolic congestive heart failure Problem details: Discharged 03/15/2019 Current visit: No Status: Resolved 78-year-old with history of HTN/CAD/diastolic heart failure and diabetes presents with hypoxic respiratory failure/pulmonary edema and CHF exacerbation * Acute CHF exacerbation diastolic with preserved EF 50% on echo as of 2018. Likely secondary to poor blood pressure control. Start aggressive diuresis/optimize hypertension management. BNP 22,000 * Hypoxic respiratory failure secondary to pulmonary edema-continue aggressive diuresis/submental oxygen/pulmonary toilet * Acute pulmonary edema, continue diuresis. * History of hypertension-poorly controlled. Continue home medications including clonidine/hydralazine/losartan/beta-ryland/hydralazine * History of hypothyroidism continue thyroxine * Iron deficiency anemia continue iron supplements * History of CAD continue aspirin/beta-ryland/statin * Anxiety disorder continue lorazepam * DM type II continue metformin/sliding scale insulin * GERD continue PPI * Anxiety disorder continue paroxetine * Hyperlipidemia continue statin * DNR * Prophylaxis heparin Plan * Inpatient admission * Aggressive diuresis * Hypertension management * Pre-existing well condition management on home medications * PT OT/nutrition support * Discharge planning per case management
[2019-05-24] MEDS ORDERED: LORazepam 1 MG TABLET PO PRN (14:42)
[2019-05-24] MEDS ORDERED: FUROSEMIDE 20 MG TABLET PO SCH (16:00)
[2019-05-24] MEDS: PARoxetine 20 MG TABLET PO SCH (21:20)
[2019-05-24] MEDS: HEPARIN 5,000 UNIT/ML VIAL SQ SCH (21:20)
[2019-05-24] MEDS: cloNIDine HCL 0.1 MG TABLET PO SCH (21:21)
[2019-05-24] MEDS: DOCUSATE SODIUM 100 MG CAPSULE PO SCH (21:21)
[2019-05-24] MEDS: SENNOSIDES/DOCUSATE SODIUM 1 TAB TABLET PO SCH (21:21)
[2019-05-24] MEDS: hydrALAZINE 25 MG TABLET PO SCH (21:21)
[2019-05-24] MEDS: CYANOCOBALAMIN (VITAMIN B-12) 500 MCG TABLET PO SCH (21:22)
[2019-05-25] MEDS: FUROSEMIDE 40 MG/4 ML VIAL IV SCH ×3 (05:28→20:59)
[2019-05-25] MEDS: 0.9 % SODIUM CHLORIDE 10 ML SYRINGE IV SCH ×3 (05:28→20:52)
[2019-05-25 06:29] LABS: Hematocrit 39.7 % (36.0-48.0); Hemoglobin 12.8 g/dL (12.0-15.0); Mean Cell Volume 87.4 fL (80.0-100.0); Mean Corpuscular HGB Conc 32.3 g/dL (31.0-36.0); Mean Platelet Volume 10.1 fL (7.4-10.4); Platelet Count 187 K/mcL (140-440); RBC 4.54 M/mcL (4.00-5.20); Red Cell Distribution Width 15.6 % (11.5-14.5); WBC 10.3 K/mcL (4.5-11.0)
[2019-05-25 06:51] LABS: ALT/SGPT 41 U/l (0-40); AST/SGOT 33 U/l (0-37); Albumin 3.8 gm/dL (3.2-5.2); Albumin/Globulin Ratio 1.5 (1.0-2.3); Alkaline Phosphatase 86 U/L (39-117); Bilirubin,Direct < 0.2 mg/dL (0.0-0.3); Bilirubin,Total 0.6 mg/dL (0.0-1.0); Calcium 9.8 mg/dl (8.6-10.4); Chloride 98 mmol/L (96-108); Globulin 2.5 gm/dL (2.2-3.7); Glomerular Filtration Rate 33; Glucose 110 mg/dL (70-105); Lactate Dehydrogenase 245 U/L (94-250); Phosphorous 3.9 mg/dL (2.7-4.5); Triglycerides 90 mg/dl (<150); Uric Acid 9.6 mg/dL (2.5-8.0)
[2019-05-25 06:54] LABS: Blood Urea Nitrogen 25 mg/dl (8-23); Carbon Dioxide 24 mmol/L (22-30)
[2019-05-25] MEDS: LEVOTHYROXINE SODIUM 112 MCG TABLET PO SCH (07:13)
[2019-05-25] MEDS: PANTOPRAZOLE 40 MG TABLET PO SCH (07:13)
[2019-05-25] MEDS: LEVOTHYROXINE 25 MCG TABLET PO SCH (07:13)
[2019-05-25] MEDS: INSULIN LISPRO 1 UNIT/0.01 ML UNIT SQ SCH ×4 (07:14→21:02)
[2019-05-25 08:05] LABS: Band Neutrophils % 1 % (0-10); Basophils % (Manual) 1 % (0-2); Lymphocytes % 10 % (15-49); Monocytes % (Manual) 10 % (1-12); Platelet Estimate NORMAL (NORMAL); RBC Morphology NORMAL (NORMAL); Reactive Lymphocytes 1 % (0-2); Segmented Neutrophils % 77 % (38-78)
[2019-05-25] MEDS ORDERED: NON FORMULARY MEDICATION 1 DOSE MISCELL (Levothyroxine Sodium [Synthroid] 137 MCG) PO SCH (09:00)
[2019-05-25] MEDS: FERROUS SULFATE 325 MG TABLET PO SCH (09:30)
[2019-05-25] MEDS: LOSARTAN 50 MG TABLET PO SCH (09:36)
[2019-05-25] MEDS: HEPARIN 5,000 UNIT/ML VIAL SQ SCH ×2 (09:36→20:52)
[2019-05-25] MEDS: metFORMIN 500 MG TABLET PO SCH (09:37)
[2019-05-25] MEDS: CYANOCOBALAMIN (VITAMIN B-12) 500 MCG TABLET PO SCH ×2 (09:37→20:51)
[2019-05-25] MEDS: POTASSIUM CHLORIDE 10 MEQ TABLET PO SCH (09:37)
[2019-05-25] MEDS: FOLIC ACID 1 MG TABLET PO SCH (09:37)
[2019-05-25] MEDS: MULTIVIT,THER IRON,CA,FA & MIN 1 TABLET PO SCH (09:37)
[2019-05-25] MEDS: THIAMINE 100 MG TABLET PO SCH (09:37)
[2019-05-25] MEDS: MAGNESIUM OXIDE 400 MG TABLET PO SCH (09:41)
[2019-05-25] MEDS: OXYBUTYNIN CHLORIDE 5 MG TAB.XL.24H PO SCH (09:41)
[2019-05-25] MEDS: sitaGLIPtin 100 MG TABLET PO SCH (09:41)
[2019-05-25] MEDS: DOCUSATE SODIUM 100 MG CAPSULE PO SCH ×2 (09:44→20:51)
[2019-05-25] MEDS: ASPIRIN 81 MG TAB.CHEW PO SCH (09:44)
[2019-05-25] MEDS: SIMVASTATIN 20 MG TABLET PO SCH (09:50)
[2019-05-25] MEDS: VITAMIN D3 400 UNIT TABLET PO SCH (09:50)
[2019-05-25] MEDS: hydrALAZINE 25 MG TABLET PO SCH ×2 (09:52→20:51)
[2019-05-25] MEDS: cloNIDine HCL 0.1 MG TABLET PO SCH ×2 (09:52→20:51)
[2019-05-25] MEDS: METOPROLOL SUCCINATE 50 MG TAB.XL.24H PO SCH (09:52)
--- NOTE | 2019-05-25 14:16 | Internal Med Progress Note ---
Medical - PN: Subj Patient information: Note initiated : 05/25/19 at 2:14 pm Service Date, if different from initiated Date: [] Patient: Jeanne Stover a 78 y/o F admitted on 05/24/19 for Shortness Of Breath, Diaphoretic. Chief Complaint: [] Interval history: Ms. Stover is a 78 year old F with known history of diastolic CHF/T2 DM/HTN and PAD who was recently hospitalized in early March with decompensated heart failure with preserved ejection fraction. Patient has been doing well since discharge however over the last couple of days has noted increasing shortness of breath, fatigue and decreased effort tolerance. She has become dyspnea at rest with associated orthopnea. She denies associated fever or chills or chest pain but endorses to frothy white sputum. She endorses taking increasing salt in her diet and has not been checking her weights daily. She is currently on twice daily Lasix but has not really helped with her symptoms over the last few days. Initial work-up in the ER was consistent with pulmonary edema with CHF bilateral infiltrates. Patient was found to be hypertensive and started on nitroglycerin and Lasix. Subsequently hospitalist service was consulted At the time of evaluation patient is alert and oriented. She was accompanied by her who is currently not in the room. She is able to answer most of the questions and provide history as above. She denies fever chills, lightheadedness dizziness but endorses to frequent urination and incontinence and using diapers. She denies diarrhea, chest pain, fever or sick contacts. 05/25-patient doing remarkably better. No overnight events. No concerns per staff. Diuresing well. Shortness of breath much improved. Currently on 1 L oxygen. Feels a lot better. Ambulating and tolerating diet. Telemetry sinus rhythm with left bundle Nitropatch discontinued. Pressures improved to around 100. No family at bedside. - Constitutional Vitals: Vital Signs Temp Pulse Resp BP Pulse Ox 97.2 F 73 12 117/64 99 05/25/19 11:00 05/25/19 14:00 05/25/19 14:00 05/25/19 14:00 05/25/19 14:00 Period Temp Pulse Resp BP Sys/Goel Pulse Ox Last 24 Hr 97.2 F-99.6 F 37-95 10-28 107-159/58-118 92-99 Intake and Output 05/25/19 05/25/19 05/25/19 05:59 13:59 21:59 Intake Total 240 50 Output Total 401 200 Balance -161 -150 Weight 150 lb Patient Weight 05/26/19 05:59 Weight 150 lb Intake & Output: Intake & Output 05/25/19 05/25/19 05/25/19 05:59 13:59 21:59 Intake Total 240 50 Output Total 401 200 Balance -161 -150 Weight 150 lb Intake: Oral 240 50 Output: Void Amount 400 200 # of times incontinent of urine 1 Other: Urine Appearance Clear Urine Color Dark Yellow Urine Odor Strong # Voids 1 General appearance: no acute distress Exam: Alert oriented Nonlabored breathing Improved breath sounds with minimal crackles bases No lymphedema No anxiety Medical - PN: Obj Da - Labs CBC & Chem 7: 05/25/19 03:50 05/25/19 03:50 Labs: Abnormal Lab Results 05/25/19 05/25/19 05/24/19 03:50 03:50 08:20 RDW 15.6 H Lymphocytes % 10 L Sodium 130 L Chloride 93 L Carbon Dioxide 17 L Anion Gap 20.0 H BUN 25 H Creatinine 1.5 H 1.4 H Glucose 110 H 355 H Uric Acid 9.6 H AST 49 H ALT 41 H 55 H NT-Pro-B Natriuret Pep 60958.0 H 05/24/19 08:20 RDW 16.0 H Lymphocytes % Sodium Chloride Carbon Dioxide Anion Gap BUN Creatinine Glucose Uric Acid AST ALT NT-Pro-B Natriuret Pep Meds: Medications Acetaminophen (Tylenol) 650 mg PO Q4-6HP PRN; Protocol PRN Reason: Per Pain Protocol/Fever > 101 Albuterol/Ipratropium (Duoneb) 3 ml NEB Q4HP PRN PRN Reason: Shortness Of Breath Alendronate Sodium (Fosamax) 70 mg PO Santillan@0700 [facility] Aspirin (Aspirin) 81 mg PO QDAY [facility] Last Admin: 05/25/19 09:44 Dose: 81 mg Documented by: Clonidine HCl (Catapres) 0.3 mg PO BID [facility] Last Admin: 05/25/19 09:52 Dose: Not Given Documented by: Cyanocobalamin (Vitamin B-12) 1,000 mcg PO BID [facility] Stop: 05/29/19 09:01 Last Admin: 05/25/19 09:37 Dose: 1,000 mcg Documented by: Dextrose (Dextrose 50%) 0 ml IV UD PRN PRN Reason: Hypoglycemia Diagnostic Test (Pha) (Accu-Chek) 1 each FS ACHS [facility] Last Admin: 05/25/19 12:28 Dose: 1 each Documented by: Docusate Sodium (Colace) 100 mg PO BID [facility] Last Admin: 05/25/19 09:44 Dose: 100 mg Documented by: Ferrous Sulfate (Ferrous Sulfate) 325 mg PO QDAY [facility] Last Admin: 05/25/19 09:30 Dose: 325 mg Documented by: Folic Acid (Folic Acid) 1 mg PO DAILY [facility] Last Admin: 05/25/19 09:37 Dose: 1 mg Documented by: Furosemide (Lasix) 40 mg IV Q8 [facility] Last Admin: 05/25/19 14:09 Dose: 40 mg Documented by: Glucose (Insta-Glucose) 15 gm PO PRN PRN PRN Reason: Hypoglycemia Heparin Sodium (Porcine) (Heparin) 5,000 unit SQ Q12 [facility] Last Admin: 05/25/19 09:36 Dose: 5,000 unit Documented by: Hydralazine HCl (Apresoline) 12.5 mg PO BID [facility] Last Admin: 05/25/19 09:52 Dose: Not Given Documented by: Acetaminophen (Ofirmev) 650 mg in 65 mls @ 130 mls/hr IV Q6HP PRN; Protocol PRN Reason: Per Pain Protocol/Fever > 101 Magnesium Sulfate (Magnesium Sulfate) 2 gm in 50 mls @ 50 mls/hr IV UD PRN PRN Reason: MG = or < 1.7 Potassium Chloride 40 meq/ (Dextrose) 520 mls @ 130 mls/hr IV UD PRN PRN Reason: K+ = or < 3.5 Insulin Human Lispro (Humalog) 0 unit SQ ACHS [facility]; Protocol Last Admin: 05/25/19 12:29 Dose: Not Given Documented by: Iron Carb/Multivit/Price Accuracy Supervisor/Folic Acid (Multivitamin W/Minerals) 1 tab PO DAILY [facility] Last Admin: 05/25/19 09:37 Dose: 1 tab Documented by: Levothyroxine Sodium (Synthroid) 112 mcg PO QAMAC [facility] Last Admin: 05/25/19 07:13 Dose: 112 mcg Documented by: Levothyroxine Sodium (Synthroid) 25 mcg PO QAMAC [facility] Last Admin: 05/25/19 07:13 Dose: 25 mcg Documented by: Lorazepam (Ativan) 1 mg PO BIDP PRN PRN Reason: anxiety Losartan Potassium (Cozaar) 50 mg PO QDAY [facility] Last Admin: 05/25/19 09:36 Dose: 50 mg Documented by: Magnesium Oxide (Magnesium Oxide) 400 mg PO QD [facility] Last Admin: 05/25/19 09:41 Dose: 400 mg Documented by: Melatonin (Melatonin 3mg Tablet) 3 mg PO HSP PRN PRN Reason: Insomnia Metformin HCl (Glucophage) 500 mg PO [facility] Last Admin: 05/25/19 09:37 Dose: 500 mg Documented by: Metoprolol Succinate (Toprol Xl) 50 mg PO [facility] Last Admin: 05/25/19 09:52 Dose: Not Given Documented by: Ondansetron HCl (Zofran) 4 mg IV Q4-6HP PRN; Protocol PRN Reason: Nausea And Vomiting Last Admin: 05/24/19 18:52 Dose: 4 mg Documented by: Oxybutynin Chloride (Ditropan Xl) 10 mg PO QDAY [facility] Last Admin: 05/25/19 09:41 Dose: 10 mg Documented by: Pantoprazole Sodium (Protonix) 40 mg PO [facility] Last Admin: 05/25/19 07:13 Dose: 40 mg Documented by: Paroxetine HCl (Paxil) 20 mg PO QHS [facility] Last Admin: 05/24/19 21:20 Dose: 20 mg Documented by: Pneumococcal Polyvalent Vaccine (Pneumovax 23) 0.5 ml IM .ONCE ONE Stop: 05/26/19 10:01 Potassium Chloride (Klor-Con) 40 meq PO DAILYP PRN PRN Reason: K+ < 3.5 Potassium Chloride (Kdur) 10 meq PO [facility] Last Admin: 05/25/19 09:37 Dose: 10 meq Documented by: Promethazine HCl (Phenergan) 12.5 - 25 mg IV Q6HP PRN PRN Reason: Nausea And Vomiting Last Admin: 05/24/19 21:19 Dose: 12.5 mg Documented by: Senna/Docusate Sodium (Senna Plus Tablet) 1 tab PO [facility] Last Admin: 05/24/19 21:21 Dose: 1 tab Documented by: Simvastatin (Zocor) 20 mg PO QDAY [facility] Last Admin: 05/25/19 09:50 Dose: 20 mg Documented by: Sitagliptin Phosphate (Januvia) 100 mg PO DAILY [facility] Last Admin: 05/25/19 09:41 Dose: 100 mg Documented by: Sodium Chloride (Saline Flush) 10 ml IV Q8 [facility] Last Admin: 05/25/19 14:09 Dose: 10 ml Documented by: Thiamine HCl (Vitamin B1) 100 mg PO DAILY [facility] Last Admin: 05/25/19 09:37 Dose: 100 mg Documented by: Vitamin D (Vitamin D3) 400 unit PO QDAY [facility] Last Admin: 05/25/19 09:50 Dose: 400 unit Documented by: Medical - PN: A/P - Time Spent With Patient Total time spent is greater than 50% in coordination of care (as documented) at patient's floor/unit and/or counseling patient: 25 - 35 minutes (1) Acute respiratory failure with hypoxia Status: Resolved Assessment and plan: 78-year-old with history of HTN/CAD/diastolic heart failure and diabetes presents with hypoxic respiratory failure/pulmonary edema and CHF exacerbation * Acute CHF exacerbation diastolic with preserved EF 50% on echo as of 2018. Clinically improving with aggressive diuresis. Likely secondary to poorly controlled hypertension. * Hypoxic respiratory failure secondary to pulmonary edema-clinically improved. Now on 1 L oxygen. Continue diuresis/supplemental oxygen. * Acute pulmonary edema, clinically improving with diuresis * Hypertensive urgency-initially managed on Nitropatch. Continue clonidine/hydralazine/losartan/beta-ryland/hydralazine * History of hypothyroidism continue thyroxine * Iron deficiency anemia continue iron supplements * History of CAD continue aspirin/beta-ryland/statin * Anxiety disorder continue lorazepam * DM type II continue well-controlled on sitagliptin/metformin/sliding scale insulin * GERD continue PPI * Anxiety disorder continue paroxetine * Hyperlipidemia continue statin * DNR * Prophylaxis heparin Plan * Continue diuresis * Optimize hypertension management * Pre-existing medical condition management on home medications * Continue PT OT/nutrition support * Discharge planning per case management Current Visit: No (2) Acute on chronic diastolic congestive heart failure Problem details: Discharged 03/15/2019 Status: Resolved Current Visit: No
[2019-05-25] MEDS: PARoxetine 20 MG TABLET PO SCH (20:51)
[2019-05-25] MEDS: SENNOSIDES/DOCUSATE SODIUM 1 TAB TABLET PO SCH (20:51)
[2019-05-25] MEDS ORDERED: METOPROLOL TARTRATE 50 MG TABLET PO ONE (21:12)
[2019-05-26] MEDS: FUROSEMIDE 40 MG/4 ML VIAL IV SCH ×3 (05:37→21:26)
[2019-05-26] MEDS: 0.9 % SODIUM CHLORIDE 10 ML SYRINGE IV SCH ×3 (05:37→21:26)
[2019-05-26 06:56] LABS: Hematocrit 39.9 % (36.0-48.0); Hemoglobin 12.9 g/dL (12.0-15.0); Mean Cell Volume 87.8 fL (80.0-100.0); Mean Corpuscular HGB Conc 32.3 g/dL (31.0-36.0); Mean Platelet Volume 10.7 fL (7.4-10.4); Platelet Count 188 K/mcL (140-440); RBC 4.54 M/mcL (4.00-5.20); Red Cell Distribution Width 16.5 % (11.5-14.5); WBC 10.1 K/mcL (4.5-11.0)
[2019-05-26 07:32] LABS: ALT/SGPT 41 U/l (0-40); AST/SGOT 35 U/l (0-37); Albumin 3.9 gm/dL (3.2-5.2); Albumin/Globulin Ratio 1.4 (1.0-2.3); Alkaline Phosphatase 89 U/L (39-117); Bilirubin,Direct < 0.2 mg/dL (0.0-0.3); Bilirubin,Total 0.5 mg/dL (0.0-1.0); Blood Urea Nitrogen 30 mg/dl (8-23); Calcium 10.1 mg/dl (8.6-10.4); Carbon Dioxide 27 mmol/L (22-30); Chloride 96 mmol/L (96-108); Globulin 2.7 gm/dL (2.2-3.7); Glomerular Filtration Rate 36; Glucose 128 mg/dL (70-105); Lactate Dehydrogenase 291 U/L (94-250); Triglycerides 109 mg/dl (<150)
[2019-05-26 07:34] LABS: Phosphorous 2.6 mg/dL (2.7-4.5)
[2019-05-26] MEDS: LEVOTHYROXINE SODIUM 112 MCG TABLET PO SCH (07:38)
[2019-05-26] MEDS: PANTOPRAZOLE 40 MG TABLET PO SCH (07:38)
[2019-05-26] MEDS: LEVOTHYROXINE 25 MCG TABLET PO SCH (07:38)
[2019-05-26] MEDS: INSULIN LISPRO 1 UNIT/0.01 ML UNIT SQ SCH ×4 (07:41→21:38)
--- NOTE | 2019-05-26 08:10 | XRay Report ---
CLINICAL INFORMATION: Interval Change COMPARISON: 05/24/2019 FINDINGS: Marked cardiomegaly is unchanged. Mediastinum and pulmonary vessels are normal. Moderate bibasilar infiltrates have worsened from exam two days prior - particularly on the right side. Small bilateral pleural effusions are unchanged. Left mastectomy changes noted IMPRESSION: Moderate bibasilar infiltrates and small effusions worsening since exam two days prior. Consider aspiration Interpreted and Authenticated by: Vitaliy Leonard 05/26/19
[2019-05-26 08:30] LABS: Anisocytosis 1+ (NONE SEEN); Lymphocytes % 19 % (15-49); Monocytes % (Manual) 12 % (1-12); Platelet Estimate NORMAL (NORMAL); RBC Morphology ABNORM (NORMAL); Segmented Neutrophils % 69 % (38-78)
[2019-05-26] MEDS: HEPARIN 5,000 UNIT/ML VIAL SQ SCH ×2 (09:21→21:25)
[2019-05-26] MEDS: DOCUSATE SODIUM 100 MG CAPSULE PO SCH ×2 (09:22→21:25)
[2019-05-26] MEDS: metFORMIN 500 MG TABLET PO SCH (09:23)
[2019-05-26] MEDS: cloNIDine HCL 0.1 MG TABLET PO SCH ×3 (09:23→21:57)
[2019-05-26] MEDS: FOLIC ACID 1 MG TABLET PO SCH (09:24)
[2019-05-26] MEDS: CYANOCOBALAMIN (VITAMIN B-12) 500 MCG TABLET PO SCH ×2 (09:24→21:25)
[2019-05-26] MEDS: FERROUS SULFATE 325 MG TABLET PO SCH (09:24)
[2019-05-26] MEDS: VITAMIN D3 400 UNIT TABLET PO SCH (09:24)
[2019-05-26] MEDS: POTASSIUM CHLORIDE 10 MEQ TABLET PO SCH (09:24)
[2019-05-26] MEDS: OXYBUTYNIN CHLORIDE 5 MG TAB.XL.24H PO SCH (09:25)
[2019-05-26] MEDS: SIMVASTATIN 20 MG TABLET PO SCH (09:25)
[2019-05-26] MEDS: THIAMINE 100 MG TABLET PO SCH (09:25)
[2019-05-26] MEDS: MULTIVIT,THER IRON,CA,FA & MIN 1 TABLET PO SCH (09:25)
[2019-05-26] MEDS: ASPIRIN 81 MG TAB.CHEW PO SCH (09:25)
[2019-05-26] MEDS: sitaGLIPtin 100 MG TABLET PO SCH (09:25)
[2019-05-26] MEDS: MAGNESIUM OXIDE 400 MG TABLET PO SCH ×2 (09:29→11:52)
[2019-05-26] MEDS: METOPROLOL SUCCINATE 50 MG TAB.XL.24H PO SCH (09:30)
[2019-05-26] MEDS ORDERED: PNEUMOCOCCAL 23-VAL P-SAC VAC 0.5 ML SYRINGE IM ONE (10:00)
[2019-05-26] MEDS: LOSARTAN 50 MG TABLET PO SCH (10:40)
[2019-05-26] MEDS ORDERED: POTASSIUM CHLORIDE 20 MEQ PACKET PO PRN (11:11)
[2019-05-26] MEDS ORDERED: LORazepam 1 MG TABLET PO PRN (11:11)
[2019-05-26] MEDS ORDERED: ACETAMINOPHEN 650 MG/65 ML BOTTLE IV PRN (11:11)
[2019-05-26] MEDS ORDERED: MAGNESIUM SULFATE 2 GM/50 ML BAG IV PRN (11:11)
[2019-05-26] MEDS ORDERED: ACETAMINOPHEN 325 MG TABLET PO PRN (11:11)
[2019-05-26] MEDS ORDERED: POTASSIUM CHLORIDE 40 MEQ in DEXTROSE 5% IN WATER 500 ML IV PRN (11:11)
[2019-05-26] MEDS ORDERED: ONDANSETRON 4 MG/2 ML VIAL IV PRN (11:11)
[2019-05-26] MEDS ORDERED: IPRATROPIUM/ALBUTEROL 3 ML AMPUL.NEB NEB PRN (11:11)
[2019-05-26] MEDS ORDERED: DEXTROSE 50% 50 ML VIAL IV PRN (11:11)
[2019-05-26] MEDS ORDERED: MELATONIN 3 MG TABLET PO PRN (11:11)
[2019-05-26] MEDS ORDERED: DEXTROSE 31 GM ORAL.SUSP PO PRN (11:11)
[2019-05-26] MEDS ORDERED: PROMETHAZINE 25 MG/ML VIAL IV PRN (11:11)
[2019-05-26] MEDS: hydrALAZINE 25 MG TABLET PO SCH ×2 (11:51→21:57)
--- NOTE | 2019-05-26 15:09 | Internal Med Progress Note ---
Medical - PN: Subj Patient information: Note initiated : 05/26/19 at 3:07 pm Service Date, if different from initiated Date: [] Patient: Jeanne Stover a 78 y/o F admitted on 05/24/19 for Shortness Of Breath, Diaphoretic. Chief Complaint: [] Interval history: Ms. Stover is a 78 year old F with known history of diastolic CHF/T2 DM/HTN and PAD who was recently hospitalized in early March with decompensated heart failure with preserved ejection fraction. Patient has been doing well since discharge however over the last couple of days has noted increasing shortness of breath, fatigue and decreased effort tolerance. She has become dyspnea at rest with associated orthopnea. She denies associated fever or chills or chest pain but endorses to frothy white sputum. She endorses taking increasing salt in her diet and has not been checking her weights daily. She is currently on twice daily Lasix but has not really helped with her symptoms over the last few days. Initial work-up in the ER was consistent with pulmonary edema with CHF bilateral infiltrates. Patient was found to be hypertensive and started on nitroglycerin and Lasix. Subsequently hospitalist service was consulted At the time of evaluation patient is alert and oriented. She was accompanied by her who is currently not in the room. She is able to answer most of the questions and provide history as above. She denies fever chills, lightheadedness dizziness but endorses to frequent urination and incontinence and using diapers. She denies diarrhea, chest pain, fever or sick contacts. 05/25-patient doing remarkably better. No overnight events. No concerns per staff. Diuresing well. Shortness of breath much improved. Currently on 1 L oxygen. Feels a lot better. Ambulating and tolerating diet. Telemetry sinus rhythm with left bundle Nitropatch discontinued. Pressures improved to around 100. No family at bedside. 05/26-patient clinically improved however worsening basilar infiltrates suggestive of aspiration on interval imaging. ST eval. Sodium improved to 137, creatinine 1.4, diuresed over 1800 cc. No overnight fever chills nausea vomiting. - Constitutional Vitals: Vital Signs Temp Pulse Resp BP Pulse Ox 97.5 F 90 14 123/78 97 05/26/19 12:00 05/26/19 12:00 05/26/19 12:00 05/26/19 12:00 05/26/19 12:00 Period Temp Pulse Resp BP Sys/Goel Pulse Ox Last 24 Hr 97.2 F-98.5 F 86-125 14-22 105-153/40-97 93-100 Intake and Output 05/26/19 05/26/19 05/26/19 05:59 13:59 21:59 Intake Total 680 500 Output Total 726 700 Balance -46 -200 Intake & Output: Intake & Output 05/26/19 05/26/19 05/26/19 05:59 13:59 21:59 Intake Total 680 500 Output Total 726 700 Balance -46 -200 Intake: Oral 680 500 Output: Void Amount 725 700 # of times incontinent of urine 1 Other: Meal Breakfast Percent of Meal Consumed 75% Urine Appearance Clear Clear Urine Color Bright Yellow Dark Yellow Urine Odor Normal General appearance: no acute distress Exam: Alert oriented Nonlabored breathing no anxiety Nondistended abdomen Diminished breath sounds bases No lymphedema Medical - PN: Obj Da - Labs CBC & Chem 7: 05/26/19 03:50 05/26/19 03:50 Labs: Abnormal Lab Results 05/26/19 05/26/19 05/25/19 03:50 03:50 03:50 RDW 16.5 H MPV 10.7 H Lymphocytes % RBC Morphology Abnorm A Anisocytosis 1+ A Sodium Chloride Carbon Dioxide Anion Gap BUN 30 H 25 H Creatinine 1.4 H 1.5 H Glucose 128 H 110 H Uric Acid 10.0 H 9.6 H Phosphorus 2.6 L AST ALT 41 H 41 H Lactate Dehydrogenase 291 H NT-Pro-B Natriuret Pep 05/25/19 05/24/19 05/24/19 03:50 08:20 08:20 RDW 15.6 H 16.0 H MPV Lymphocytes % 10 L RBC Morphology Anisocytosis Sodium 130 L Chloride 93 L Carbon Dioxide 17 L Anion Gap 20.0 H BUN Creatinine 1.4 H Glucose 355 H Uric Acid Phosphorus AST 49 H ALT 55 H Lactate Dehydrogenase NT-Pro-B Natriuret Pep 84951.0 H Meds: Medications Acetaminophen (Tylenol) 650 mg PO Q4-6HP PRN; Protocol PRN Reason: Per Pain Protocol/Fever > 101 Albuterol/Ipratropium (Duoneb) 3 ml NEB Q4HP PRN PRN Reason: Shortness Of Breath Alendronate Sodium (Fosamax) 70 mg PO Santillan@0700 [facility] Aspirin (Aspirin) 81 mg PO QDAY [facility] Clonidine HCl (Catapres) 0.3 mg PO BID [facility] Cyanocobalamin (Vitamin B-12) 1,000 mcg PO BID [facility] Stop: 05/27/19 09:01 Dextrose (Dextrose 50%) 0 ml IV UD PRN PRN Reason: Hypoglycemia Diagnostic Test (Pha) (Accu-Chek) 1 each FS ACHS [facility] Last Admin: 05/26/19 11:47 Dose: 1 each Documented by: Docusate Sodium (Colace) 100 mg PO BID [facility] Ferrous Sulfate (Ferrous Sulfate) 325 mg PO QAMCC [facility] Folic Acid (Folic Acid) 1 mg PO DAILY [facility] Furosemide (Lasix) 40 mg IV Q8 [facility] Last Admin: 05/26/19 14:53 Dose: 40 mg Documented by: Glucose (Insta-Glucose) 15 gm PO PRN PRN PRN Reason: Hypoglycemia Heparin Sodium (Porcine) (Heparin) 5,000 unit SQ Q12 [facility] Hydralazine HCl (Apresoline) 12.5 mg PO BID [facility] Potassium Chloride 40 meq/ (Dextrose) 520 mls @ 130 mls/hr IV UD PRN PRN Reason: K+ = or < 3.5 Magnesium Sulfate (Magnesium Sulfate) 2 gm in 50 mls @ 50 mls/hr IV UD PRN PRN Reason: MG = or < 1.7 Acetaminophen (Ofirmev) 650 mg in 65 mls @ 130 mls/hr IV Q6HP PRN; Protocol PRN Reason: Per Pain Protocol/Fever > 101 Insulin Human Lispro (Humalog) 0 unit SQ ACHS [facility]; Protocol Last Admin: 05/26/19 11:48 Dose: Not Given Documented by: Iron Carb/Multivit/[place]/Folic Acid (Multivitamin W/Minerals) 1 tab PO DAILY [facility] Levothyroxine Sodium (Synthroid) 25 mcg PO QAMAC [facility] Levothyroxine Sodium (Synthroid) 112 mcg PO QAMAC [facility] Lorazepam (Ativan) 1 mg PO BIDP PRN PRN Reason: anxiety Losartan Potassium (Cozaar) 50 mg PO QDAY [facility] Magnesium Oxide (Magnesium Oxide) 400 mg PO QD [facility] Last Admin: 05/26/19 11:52 Dose: 400 mg Documented by: Melatonin (Melatonin 3mg Tablet) 3 mg PO HSP PRN PRN Reason: Insomnia Metformin HCl (Glucophage) 500 mg PO QAMCC [facility] Metoprolol Succinate (Toprol Xl) 50 mg PO QAM [facility] Ondansetron HCl (Zofran) 4 mg IV Q4-6HP PRN; Protocol PRN Reason: Nausea And Vomiting Oxybutynin Chloride (Ditropan Xl) 10 mg PO QDAY [facility] Pantoprazole Sodium (Protonix) 40 mg PO QAMAC [facility] Paroxetine HCl (Paxil) 20 mg PO QHS [facility] Potassium Chloride (Klor-Con) 40 meq PO DAILYP PRN PRN Reason: K+ < 3.5 Potassium Chloride (Kdur) 10 meq PO QAMCC [facility] Promethazine HCl (Phenergan) 12.5 - 25 mg IV Q6HP PRN PRN Reason: Nausea And Vomiting Senna/Docusate Sodium (Senna Plus Tablet) 1 tab PO HS [facility] Simvastatin (Zocor) 20 mg PO QDAY [facility] Sitagliptin Phosphate (Januvia) 100 mg PO DAILY [facility] Sodium Chloride (Saline Flush) 10 ml IV Q8 [facility] Last Admin: 05/26/19 14:53 Dose: 10 ml Documented by: Thiamine HCl (Vitamin B1) 100 mg PO DAILY [facility] Vitamin D (Vitamin D3) 400 unit PO QDAY [facility] Medical - PN: A/P - Time Spent With Patient Total time spent is greater than 50% in coordination of care (as documented) at patient's floor/unit and/or counseling patient: 25 - 35 minutes (1) Acute respiratory failure with hypoxia Status: Resolved Assessment and plan: 78-year-old with history of HTN/CAD/diastolic heart failure and diabetes presents with hypoxic respiratory failure/pulmonary edema and CHF exacerbation * Acute CHF exacerbation with pulmonary edema, diastolic with preserved EF 50% on echo as of 2018. Clinically resolved with aggressive diuresis. Likely secondary to poorly controlled hypertension. * Hypoxic respiratory failure secondary to pulmonary edema-clinically improved. On 1 L oxygen. Will likely discharge on oxygen * Hypertensive urgency-initially managed on Nitropatch. Clinically resolved. Continue clonidine/hydralazine/losartan/beta-[place]land/hydralazine * History of hypothyroidism continue thyroxine * Iron deficiency anemia continue iron supplements * History of CAD continue aspirin/beta-[place]land/statin * Anxiety disorder continue lorazepam * DM type II continue well-controlled on sitagliptin/metformin/sliding scale insulin * GERD continue PPI * Anxiety disorder continue paroxetine * Hyperlipidemia continue statin * DNR * Prophylaxis heparin Plan * Continue diuresis * Continue pre-existing medical condition management on home medications * Continue PT OT/nutrition support * Discharge planning per case management, anticipate SNF transfer Current Visit: No
[2019-05-26] MEDS: SENNOSIDES/DOCUSATE SODIUM 1 TAB TABLET PO SCH (21:24)
[2019-05-26] MEDS: PARoxetine 20 MG TABLET PO SCH (21:25)
[2019-05-27] MEDS: hydrALAZINE 25 MG TABLET PO SCH ×3 (00:20→21:18)
[2019-05-27] MEDS: cloNIDine HCL 0.1 MG TABLET PO SCH ×3 (00:21→21:18)
[2019-05-27] MEDS: 0.9 % SODIUM CHLORIDE 10 ML SYRINGE IV SCH ×3 (05:39→21:23)
[2019-05-27 05:40] LABS: Hematocrit 36.2 % (36.0-48.0); Hemoglobin 11.8 g/dL (12.0-15.0); Mean Cell Volume 88.1 fL (80.0-100.0); Mean Corpuscular HGB Conc 32.6 g/dL (31.0-36.0); Mean Platelet Volume 10.3 fL (7.4-10.4); Platelet Count 148 K/mcL (140-440); RBC 4.11 M/mcL (4.00-5.20); Red Cell Distribution Width 16.1 % (11.5-14.5); WBC 7.1 K/mcL (4.5-11.0)
[2019-05-27] MEDS: FUROSEMIDE 40 MG/4 ML VIAL IV SCH ×2 (05:40→14:44)
[2019-05-27 05:47] LABS: ALT/SGPT 39 U/l (0-40); AST/SGOT 32 U/l (0-37); Albumin 3.2 gm/dL (3.2-5.2); Albumin/Globulin Ratio 1.3 (1.0-2.3); Alkaline Phosphatase 78 U/L (39-117); Bilirubin,Direct < 0.2 mg/dL (0.0-0.3); Bilirubin,Total 0.4 mg/dL (0.0-1.0); Blood Urea Nitrogen 31 mg/dl (8-23); Calcium 10.1 mg/dl (8.6-10.4); Carbon Dioxide 30 mmol/L (22-30); Chloride 97 mmol/L (96-108); Globulin 2.5 gm/dL (2.2-3.7); Glomerular Filtration Rate 43; Glucose 111 mg/dL (70-105); Lactate Dehydrogenase 194 U/L (94-250); Phosphorous 2.6 mg/dL (2.7-4.5); Triglycerides 113 mg/dl (<150); Uric Acid 9.7 mg/dL (2.5-8.0)
[2019-05-27] MEDS: PANTOPRAZOLE 40 MG TABLET PO SCH (07:03)
[2019-05-27] MEDS: LEVOTHYROXINE 25 MCG TABLET PO SCH (07:03)
[2019-05-27] MEDS: LEVOTHYROXINE SODIUM 112 MCG TABLET PO SCH (07:03)
[2019-05-27] MEDS: sitaGLIPtin 100 MG TABLET PO SCH (08:14)
[2019-05-27] MEDS: CYANOCOBALAMIN (VITAMIN B-12) 500 MCG TABLET PO SCH (08:14)
[2019-05-27] MEDS: LOSARTAN 50 MG TABLET PO SCH (08:14)
[2019-05-27] MEDS: HEPARIN 5,000 UNIT/ML VIAL SQ SCH ×2 (08:14→21:18)
[2019-05-27] MEDS: METOPROLOL SUCCINATE 50 MG TAB.XL.24H PO SCH (08:14)
[2019-05-27] MEDS: THIAMINE 100 MG TABLET PO SCH (08:15)
[2019-05-27] MEDS: FERROUS SULFATE 325 MG TABLET PO SCH (08:15)
[2019-05-27] MEDS: DOCUSATE SODIUM 100 MG CAPSULE PO SCH ×2 (08:15→21:17)
[2019-05-27] MEDS: FOLIC ACID 1 MG TABLET PO SCH (08:15)
[2019-05-27] MEDS: ASPIRIN 81 MG TAB.CHEW PO SCH (08:15)
[2019-05-27] MEDS: OXYBUTYNIN CHLORIDE 5 MG TAB.XL.24H PO SCH (08:16)
[2019-05-27] MEDS: SIMVASTATIN 20 MG TABLET PO SCH (08:16)
[2019-05-27] MEDS: metFORMIN 500 MG TABLET PO SCH (08:18)
[2019-05-27] MEDS: INSULIN LISPRO 1 UNIT/0.01 ML UNIT SQ SCH ×4 (08:19→21:22)
[2019-05-27] MEDS: MULTIVIT,THER IRON,CA,FA & MIN 1 TABLET PO SCH (08:19)
[2019-05-27] MEDS: VITAMIN D3 400 UNIT TABLET PO SCH (08:28)
[2019-05-27] MEDS: POTASSIUM CHLORIDE 10 MEQ TABLET PO SCH (08:30)
[2019-05-27 08:55] LABS: Anisocytosis 1+ (NONE SEEN); Lymphocytes % 14 % (15-49); Monocytes % (Manual) 8 % (1-12); Platelet Estimate NORMAL (NORMAL); RBC Morphology ABNORM (NORMAL); Segmented Neutrophils % 78 % (38-78)
--- NOTE | 2019-05-27 11:11 | Internal Med Progress Note ---
Medical - PN: Subj Patient information: Note initiated : 05/27/19 at 11:09 am Service Date, if different from initiated Date: [] Patient: Jeanne Stover a 78 y/o F admitted on 05/24/19 for Shortness Of Breath, Diaphoretic. Chief Complaint: [] Interval history: Ms. Stover is a 78 year old F with known history of diastolic CHF/T2 DM/HTN and PAD who was recently hospitalized in early March with decompensated heart failure with preserved ejection fraction. Patient has been doing well since discharge however over the last couple of days has noted increasing shortness of breath, fatigue and decreased effort tolerance. She has become dyspnea at rest with associated orthopnea. She denies associated fever or chills or chest pain but endorses to frothy white sputum. She endorses taking increasing salt in her diet and has not been checking her weights daily. She is currently on twice daily Lasix but has not really helped with her symptoms over the last few days. Initial work-up in the ER was consistent with pulmonary edema with CHF bilateral infiltrates. Patient was found to be hypertensive and started on nitroglycerin and Lasix. Subsequently hospitalist service was consulted At the time of evaluation patient is alert and oriented. She was accompanied by her who is currently not in the room. She is able to answer most of the questions and provide history as above. She denies fever chills, lightheadedness dizziness but endorses to frequent urination and incontinence and using diapers. She denies diarrhea, chest pain, fever or sick contacts. 05/25-patient doing remarkably better. No overnight events. No concerns per staff. Diuresing well. Shortness of breath much improved. Currently on 1 L oxygen. Feels a lot better. Ambulating and tolerating diet. Telemetry sinus rhythm with left bundle Nitropatch discontinued. Pressures improved to around 100. No family at bedside. 05/26-patient clinically improved however worsening basilar infiltrates suggestive of aspiration on interval imaging. ST eval. Sodium improved to 137, creatinine 1.4, diuresed over 1800 cc. No overnight fever chills nausea vomiting. 05/27-patient doing well. Now on 1 L oxygen. No overnight fever chills. Creatinine down to 1.2. Stable hemodynamics. Undergoing physical therapy. In termittent PVCs on telemetry monitoring however continues to improve clinically. Barium swallow evaluation today. Continue diet per ST recommendations. Anticipate discharge in 24 hours. - Constitutional Vitals: Vital Signs Temp Pulse Resp BP Pulse Ox 97.4 F 82 20 110/66 93 05/27/19 07:00 05/27/19 03:44 05/27/19 07:00 05/27/19 07:00 05/27/19 08:00 Period Temp Pulse Resp BP Sys/Goel Pulse Ox Last 24 Hr 97.4 F-98.3 F 67-90 12-20 103-134/66-86 93-98 Intake and Output 05/26/19 05/27/19 05/27/19 21:59 05:59 13:59 Intake Total 300 560 Output Total 600 1500 650 Balance -300 -940 -650 Weight 149 lb 8 oz Intake & Output: Intake & Output 05/26/19 05/27/19 05/27/19 21:59 05:59 13:59 Intake Total 300 560 Output Total 600 1500 650 Balance -300 -940 -650 Weight 149 lb 8 oz Intake: Oral 300 560 Output: Void Amount 600 1500 650 Other: Urine Appearance Clear Clear Clear Urine Color Pale Pale Pale Urine Odor Normal General appearance: no acute distress Exam: Alert oriented Nonlabored breathing No anxiety Nondistended abdomen No lymphedema Medical - PN: Obj Da - Labs CBC & Chem 7: 05/27/19 04:10 05/27/19 04:10 Labs: Abnormal Lab Results 05/27/19 05/27/19 05/26/19 04:10 04:10 03:50 Hgb 11.8 L RDW 16.1 H MPV Lymphocytes % 14 L RBC Morphology Abnorm A Anisocytosis 1+ A BUN 31 H 30 H Creatinine 1.2 H 1.4 H Glucose 111 H 128 H Uric Acid 9.7 H 10.0 H Phosphorus 2.6 L 2.6 L ALT 41 H Lactate Dehydrogenase 291 H Total Protein 5.7 L 05/26/19 05/25/19 05/25/19 03:50 03:50 03:50 Hgb RDW 16.5 H 15.6 H MPV 10.7 H Lymphocytes % 10 L RBC Morphology Abnorm A Anisocytosis 1+ A BUN 25 H Creatinine 1.5 H Glucose 110 H Uric Acid 9.6 H Phosphorus ALT 41 H Lactate Dehydrogenase Total Protein Meds: Medications Acetaminophen (Tylenol) 650 mg PO Q4-6HP PRN; Protocol PRN Reason: Per Pain Protocol/Fever > 101 Albuterol/Ipratropium (Duoneb) 3 ml NEB Q4HP PRN PRN Reason: Shortness Of Breath Alendronate Sodium (Fosamax) 70 mg PO Santillan@0700 [facility] Aspirin (Aspirin) 81 mg PO QDAY [facility] Last Admin: 05/27/19 08:15 Dose: 81 mg Documented by: Clonidine HCl (Catapres) 0.3 mg PO BID [facility] Last Admin: 05/27/19 08:27 Dose: 0.3 mg Documented by: Dextrose (Dextrose 50%) 0 ml IV UD PRN PRN Reason: Hypoglycemia Diagnostic Test (Pha) (Accu-Chek) 1 each FS ACHS [facility] Last Admin: 05/27/19 07:03 Dose: 1 each Documented by: Docusate Sodium (Colace) 100 mg PO BID [facility] Last Admin: 05/27/19 08:15 Dose: 100 mg Documented by: Ferrous Sulfate (Ferrous Sulfate) [address] [facility] Last Admin: 05/27/19 08:15 Dose: 325 mg Documented by: Folic Acid (Folic Acid) 1 mg PO DAILY [facility] Last Admin: 05/27/19 08:15 Dose: 1 mg Documented by: Furosemide (Lasix) 40 mg IV Q8 [facility] Last Admin: 05/27/19 05:40 Dose: 40 mg Documented by: Glucose (Insta-Glucose) 15 gm PO PRN PRN PRN Reason: Hypoglycemia Heparin Sodium (Porcine) (Heparin) 5,000 unit SQ Q12 [facility] Last Admin: 05/27/19 08:14 Dose: 5,000 unit Documented by: Hydralazine HCl (Apresoline) 12.5 mg PO BID [facility] Last Admin: 05/27/19 08:22 Dose: Not Given Documented by: Potassium Chloride 40 meq/ (Dextrose) 520 mls @ 130 mls/hr IV UD PRN PRN Reason: K+ = or < 3.5 Magnesium Sulfate (Magnesium Sulfate) 2 gm in 50 mls @ 50 mls/hr IV UD PRN PRN Reason: MG = or < 1.7 Acetaminophen (Ofirmev) 650 mg in 65 mls @ 130 mls/hr IV Q6HP PRN; Protocol PRN Reason: Per Pain Protocol/Fever > 101 Insulin Human Lispro (Humalog) 0 unit SQ ACHS [facility]; Protocol Last Admin: 05/27/19 08:19 Dose: Not Given Documented by: Iron Carb/Multivit/[place]/Folic Acid (Multivitamin W/Minerals) 1 tab PO DAILY [facility] Last Admin: 05/27/19 08:19 Dose: 1 tab Documented by: Levothyroxine Sodium (Synthroid) 25 mcg PO [facility] Last Admin: 05/27/19 07:03 Dose: 25 mcg Documented by: Levothyroxine Sodium (Synthroid) 112 mcg PO [facility] Last Admin: 05/27/19 07:03 Dose: 112 mcg Documented by: Lorazepam (Ativan) 1 mg PO BIDP PRN PRN Reason: anxiety Losartan Potassium (Cozaar) 50 mg PO QDAY [facility] Last Admin: 05/27/19 08:14 Dose: 50 mg Documented by: Magnesium Oxide (Magnesium Oxide) 400 mg PO QD [facility] Last Admin: 05/26/19 11:52 Dose: 400 mg Documented by: Melatonin (Melatonin 3mg Tablet) 3 mg PO HSP PRN PRN Reason: Insomnia Metformin HCl (Glucophage) [address] [facility] Last Admin: 05/27/19 08:18 Dose: 500 mg Documented by: Metoprolol Succinate (Toprol Xl) 50 mg PO [facility] Last Admin: 05/27/19 08:14 Dose: 50 mg Documented by: Ondansetron HCl (Zofran) 4 mg IV Q4-6HP PRN; Protocol PRN Reason: Nausea And Vomiting Oxybutynin Chloride (Ditropan Xl) 10 mg PO QDAY [facility] Last Admin: 05/27/19 08:16 Dose: 10 mg Documented by: Pantoprazole Sodium (Protonix) 40 mg PO [facility] Last Admin: 05/27/19 07:03 Dose: 40 mg Documented by: Paroxetine HCl (Paxil) 20 mg PO QHS [facility] Last Admin: 05/26/19 21:25 Dose: 20 mg Documented by: Potassium Chloride (Klor-Con) 40 meq PO DAILYP PRN PRN Reason: K+ < 3.5 Potassium Chloride (Kdur) 10 meq PO [facility] Last Admin: 05/27/19 08:30 Dose: 10 meq Documented by: Promethazine HCl (Phenergan) 12.5 - 25 mg IV Q6HP PRN PRN Reason: Nausea And Vomiting Senna/Docusate Sodium (Senna Plus Tablet) 1 tab PO HS [facility] Last Admin: 05/26/19 21:24 Dose: 1 tab Documented by: Simvastatin (Zocor) 20 mg PO QDAY [facility] Last Admin: 05/27/19 08:16 Dose: 20 mg Documented by: Sitagliptin Phosphate (Januvia) 100 mg PO DAILY [facility] Last Admin: 05/27/19 08:14 Dose: 100 mg Documented by: Sodium Chloride (Saline Flush) 10 ml IV Q8 [facility] Last Admin: 05/27/19 05:39 Dose: 10 ml Documented by: Thiamine HCl (Vitamin B1) 100 mg PO DAILY [facility] Last Admin: 05/27/19 08:15 Dose: 100 mg Documented by: Vitamin D (Vitamin D3) 400 unit PO QDAY [facility] Last Admin: 05/27/19 08:28 Dose: 400 unit Documented by: Medical - PN: A/P - Time Spent With Patient Total time spent is greater than 50% in coordination of care (as documented) at patient's floor/unit and/or counseling patient: 15 - 24 minutes (1) Acute respiratory failure with hypoxia Status: Resolved Assessment and plan: 78-year-old with history of HTN/CAD/diastolic heart failure and diabetes presents with hypoxic respiratory failure/pulmonary edema and CHF exacerbation * Acute CHF exacerbation with pulmonary edema, diastolic with preserved EF 50% on echo as of 2018. Clinically resolved with aggressive diuresis. * Hypoxic respiratory failure secondary to pulmonary edema-clinically resolved. On 1 L oxygen. * Hypertensive urgency-initially managed on Nitropatch. Clinically resolved. Blood pressure at goal on clonidine/hydralazine/losartan/beta- [place]/hydralazine * History of hypothyroidism continue thyroxine * Iron deficiency anemia continue iron supplements * History of CAD continue aspirin/beta-[place]/statin * Anxiety disorder continue lorazepam * DM type II continue well-controlled on sitagliptin/metformin/sliding scale insulin * GERD continue PPI * Anxiety disorder continue paroxetine * Hyperlipidemia continue statin * DNR * Prophylaxis heparin Plan * Continue diuresis * ST/barium eval today * Continue pre-existing medical condition management on home medications * Continue PT OT/nutrition support * Exercise oximetry prior to discharge * Anticipate discharge to SNF in 24 hours Current Visit: No
[2019-05-27] MEDS: MAGNESIUM OXIDE 400 MG TABLET PO SCH (12:36)
--- NOTE | 2019-05-27 15:34 | XRay Report ---
CLINICAL INFORMATION: possible aspiration Technique: Fluoroscopic observation of thin thick quality barium ingestion was observed and recorded fluoroscopically. Deglutition. FINDINGS: See worksheet IMPRESSION: Moderate descending aspiration penetrating the laryngeal vestibule due to incomplete epiglottis closure. There was also penetration of the vocal into the trachea. No cough reflex elicited. Aspiration was only noted during ingestion of thin quality barium. No cough reflex elicited. Honey and nectar viscosity barium were well tolerated without aspiration. Please see speech pathology report. Interpreted and Authenticated by: Vitaliy Leonard 05/27/19
[2019-05-27] MEDS: FUROSEMIDE 20 MG/2 ML VIAL IV SCH (16:09)
[2019-05-27] MEDS: AMOXICILLIN/POTASSIUM CLAV 875 MG TABLET PO SCH (19:30)
[2019-05-27] MEDS: SENNOSIDES/DOCUSATE SODIUM 1 TAB TABLET PO SCH (21:17)
[2019-05-27] MEDS: PARoxetine 20 MG TABLET PO SCH (21:17)
[2019-05-28] MEDS: 0.9 % SODIUM CHLORIDE 10 ML SYRINGE IV SCH (04:03)
[2019-05-28 06:23] LABS: Hematocrit 36.6 % (36.0-48.0); Mean Cell Volume 87.6 fL (80.0-100.0); Mean Corpuscular HGB Conc 32.9 g/dL (31.0-36.0); Mean Platelet Volume 10.3 fL (7.4-10.4); Platelet Count 161 K/mcL (140-440); RBC 4.17 M/mcL (4.00-5.20); Red Cell Distribution Width 16.5 % (11.5-14.5); WBC 5.8 K/mcL (4.5-11.0)
[2019-05-28 07:01] LABS: ALT/SGPT 42 U/l (0-40); AST/SGOT 37 U/l (0-37); Albumin 3.5 gm/dL (3.2-5.2); Albumin/Globulin Ratio 1.3 (1.0-2.3); Alkaline Phosphatase 81 U/L (39-117); Bilirubin,Direct < 0.2 mg/dL (0.0-0.3); Bilirubin,Total 0.4 mg/dL (0.0-1.0); Blood Urea Nitrogen 34 mg/dl (8-23); Calcium 10.6 mg/dl (8.6-10.4); Carbon Dioxide 29 mmol/L (22-30); Globulin 2.6 gm/dL (2.2-3.7); Glomerular Filtration Rate 36; Glucose 93 mg/dL (70-105); Lactate Dehydrogenase 232 U/L (94-250); Triglycerides 137 mg/dl (<150); Uric Acid 8.9 mg/dL (2.5-8.0)
[2019-05-28 07:12] LABS: Chloride 95 mmol/L (96-108); Phosphorous 3.2 mg/dL (2.7-4.5)
[2019-05-28] MEDS: PANTOPRAZOLE 40 MG TABLET PO SCH (07:20)
[2019-05-28] MEDS: INSULIN LISPRO 1 UNIT/0.01 ML UNIT SQ SCH (07:21)
[2019-05-28] MEDS: LEVOTHYROXINE SODIUM 112 MCG TABLET PO SCH (07:22)
[2019-05-28] MEDS: LEVOTHYROXINE 25 MCG TABLET PO SCH (07:22)
[2019-05-28] MEDS: HEPARIN 5,000 UNIT/ML VIAL SQ SCH (08:34)
[2019-05-28] MEDS: FUROSEMIDE 20 MG/2 ML VIAL IV SCH (08:34)
[2019-05-28] MEDS: hydrALAZINE 25 MG TABLET PO SCH (08:35)
[2019-05-28] MEDS: SIMVASTATIN 20 MG TABLET PO SCH (08:36)
[2019-05-28] MEDS: cloNIDine HCL 0.1 MG TABLET PO SCH (08:36)
[2019-05-28] MEDS: METOPROLOL SUCCINATE 50 MG TAB.XL.24H PO SCH (08:36)
[2019-05-28] MEDS: OXYBUTYNIN CHLORIDE 5 MG TAB.XL.24H PO SCH (08:36)
[2019-05-28] MEDS: THIAMINE 100 MG TABLET PO SCH (08:36)
[2019-05-28] MEDS: AMOXICILLIN/POTASSIUM CLAV 875 MG TABLET PO SCH (08:36)
[2019-05-28] MEDS: sitaGLIPtin 100 MG TABLET PO SCH (08:36)
[2019-05-28] MEDS: VITAMIN D3 400 UNIT TABLET PO SCH (08:36)
[2019-05-28] MEDS: POTASSIUM CHLORIDE 10 MEQ TABLET PO SCH (08:37)
[2019-05-28] MEDS: LOSARTAN 50 MG TABLET PO SCH (08:37)
[2019-05-28] MEDS: FOLIC ACID 1 MG TABLET PO SCH (08:37)
[2019-05-28] MEDS: metFORMIN 500 MG TABLET PO SCH (08:37)
[2019-05-28 08:38] LABS: Anisocytosis 1+ (NONE SEEN); Eosinophils % (Manual) 4 % (0-7); Lymphocytes % 16 % (15-49); Monocytes % (Manual) 15 % (1-12); Platelet Estimate NORMAL (NORMAL); RBC Morphology ABNORM (NORMAL); Segmented Neutrophils % 65 % (38-78)
[2019-05-28] MEDS: ASPIRIN 81 MG TAB.CHEW PO SCH (08:38)
[2019-05-28] MEDS: DOCUSATE SODIUM 100 MG CAPSULE PO SCH (08:38)
[2019-05-28] MEDS: MULTIVIT,THER IRON,CA,FA & MIN 1 TABLET PO SCH (08:38)
[2019-05-28] MEDS: FERROUS SULFATE 325 MG TABLET PO SCH (08:38)
--- NOTE | 2019-05-28 09:41 | Discharge Summary ---
Medical - DS: Prov Patient information: Note initiated : 05/28/19 at 9:38 am Service Date, if different from initiated Date: [] Patient: Jeanne Stover 78 y/o F admitted on 05/24/19 for Shortness Of Breath, Diaphoretic. Chief Complaint: [] Date of admission: 05/24/19 11:00 Discharge date: 05/28/19 Primary care physician: Vitaliy Hardy DO Consults: 05/24/19 Consult to Physician [CONS] Stat Comment: Consulting Provider: Jae Coulter Reason For Exam: Physician to Consult Medical - DS: Meds - Discharge Medications Prescriptions: Amoxicillin/Potassium Clav [Augmentin] 875 mg PO BIDCC #12 tab [facility] Medications: Home Medications aspirin 81 mg tablet,delayed release 81 mg PO QDAY tab 02/27/15 [History Confirmed 05/24/19 Last Taken Unknown] ferrous sulfate 325 mg (65 mg iron) tablet 325 mg PO QDAY 03/26/16 [History Confirmed 05/24/19 Last Taken Unknown] cholecalciferol (vitamin D3) 400 unit capsule 400 unit PO QDAY 05/18/17 [History Confirmed 05/24/19 Last Taken Unknown] magnesium oxide 400 mg (241.3 mg magnesium) tablet 400 mg PO QDAY tab 07/27/17 [History Confirmed 05/24/19 Last Taken Unknown] hydralazine 25 mg tablet 12.5 mg PO BID tab 05/19/18 [History Confirmed 05/24/19 Last Taken Unknown] alendronate 70 mg tablet 70 mg PO QWEEK #12 tab 07/14/18 [Rx Confirmed 05/24/19 Last Taken Unknown] potassium chloride 10 mEq tablet,extended release 10 meq PO QAMCC tab 11/09/18 [History Confirmed 05/24/19 Last Taken Unknown] clonidine HCl 0.3 mg tablet 0.3 mg PO BID #60 tab 02/25/19 [Rx Confirmed 05/24/19 Last Taken Unknown] Furosemide [Lasix] 20 mg PO BID 03/14/19 [History Confirmed 05/24/19 Last Taken Unknown] LORazepam [Ativan] 1 mg PO BIDP PRN 03/14/19 [History Confirmed 05/24/19 Last Taken Unknown] metoprolol succinate 100 mg tablet,extended release 24 hr 50 mg PO QAM tab 03/30/19 [History Confirmed 05/24/19 Last Taken Unknown] paroxetine HCl 20 mg tablet 20 mg PO QHS #30 tab 03/30/19 [Rx Confirmed 05/24/19 Last Taken Unknown] losartan 50 mg tablet 50 mg PO QDAY #90 tab 04/06/19 [Rx Confirmed 05/24/19 Last Taken Unknown] metformin 500 mg tablet 500 mg PO QDAY #90 tab 04/18/19 [Rx Confirmed 05/24/19 Last Taken Unknown] oxybutynin chloride 10 mg tablet,extended release 24 hr 10 mg PO QDAY tab 04/18/19 [History Confirmed 05/24/19 Last Taken Unknown] pantoprazole 40 mg tablet,delayed release 40 mg PO QDAY #90 tab 04/18/19 [Rx Confirmed 05/24/19 Last Taken Unknown] simvastatin 20 mg tablet 20 mg PO QDAY #90 tab 04/18/19 [Rx Confirmed 05/24/19 Last Taken Unknown] levothyroxine 137 mcg tablet 137 mcg PO QAM #90 tab 05/16/19 [Rx Confirmed 05/24/19 Last Taken Unknown] Amoxicillin/Potassium Clav [Augmentin] 875 mg PO BIDCC #12 tab 05/28/19 [Rx Last Taken Unknown] Medical - DS: Hosp Hospital Course: Discharge diagnosis * Acute CHF exacerbation with pulmonary edema, diastolic with preserved EF 50% on echo as of 2018. Clinically resolved with aggressive diuresis. * Aspiration pneumonitis-continue additional 6 days oral Augmentin. Continue aspiration precaution and diet per ST recommendations. * Hypoxic respiratory failure secondary to pulmonary edema-clinically resolved now on room air. * Hypertensive urgency- Clinically resolved. Blood pressure at goal on home dose clonidine/hydralazine/losartan/beta-ryland/hydralazine * History of hypothyroidism continue thyroxine * Iron deficiency anemia continue iron supplements * History of CAD continue aspirin/beta-ryland/statin * Anxiety disorder continue lorazepam * DM type II continue well-controlled on metformin/sliding scale insulin * GERD continue PPI * Anxiety disorder continue paroxetine * Hyperlipidemia continue statin Brief hospital course Ms. Stover is a 78 year old F with known history of diastolic CHF/T2 DM/HTN and PAD who was recently hospitalized in early March with decompensated heart failure with preserved ejection fraction. Patient has been doing well since discharge however over the last couple of days has noted increasing shortness of breath, fatigue and decreased effort tolerance. She has become dyspnea at rest with associated orthopnea. She denies associated fever or chills or chest pain but endorses to frothy white sputum. She endorses taking increasing salt in her diet and has not been checking her weights daily. She is currently on twice daily Lasix but has not really helped with her symptoms over the last few days. Initial work-up in the ER was consistent with pulmonary edema with CHF bilateral infiltrates. Patient was found to be hypertensive and started on nitroglycerin and Lasix. Subsequently hospitalist service was consulted At the time of evaluation patient is alert and oriented. She was accompanied by her who is currently not in the room. She is able to answer most of the questions and provide history as above. She denies fever chills, lightheadedness dizziness but endorses to frequent urination and incontinence and using diapers. She denies diarrhea, chest pain, fever or sick contacts. 05/25-patient doing remarkably better. No overnight events. No concerns per staff. Diuresing well. Shortness of breath much improved. Currently on 1 L oxygen. Feels a lot better. Ambulating and tolerating diet. Telemetry sinus rhythm with left bundle Nitropatch discontinued. Pressures improved to around 100. No family at bedside. 05/26-patient clinically improved however worsening basilar infiltrates suggestive of aspiration on interval imaging. ST eval. Sodium improved to 137, creatinine 1.4, diuresed over 1800 cc. No overnight fever chills nausea vomiting. 05/27-patient doing well. Now on 1 L oxygen. No overnight fever chills. Creat inine down to 1.2. Stable hemodynamics. Undergoing physical therapy. Intermittent PVCs on telemetry monitoring however continues to improve clinically. Barium swallow evaluation today. Continue diet per ST recommendations. Anticipate discharge in 24 hours. 05/28-patient discharging home with home health along with continued antibiotic for additional 6 days. Continue daily weight monitoring and recommend doubling dose of Lasix for 3 to 5 days if weight gain noted over 4 pounds of baseline. Also recommend continuing following her primary care physician. All meals sitting upright to prevent aspiration. No overnight fever chills or concerns per staff. Discharge diagnosis: . - Time Spent with Patient Total time spent providing and/or coordinating discharge services: Greater than 30 minutes Medical - DS: Exam - Constitutional Vitals: Vital Signs Temp Pulse Resp BP Pulse Ox 05/28/19 07:37 97.9 F 20 137/85 98 05/28/19 04:00 98.4 F 74 18 103/60 97 05/27/19 23:52 98.3 F 68 18 92/56 98 05/27/19 19:42 98.6 F 66 18 102/65 95 05/27/19 15:52 97.8 F 20 92/53 96 05/27/19 11:57 97.6 F 16 90/52 96 Intake and Output 05/27/19 05/28/19 05/28/19 21:59 05:59 13:59 Intake Total 350 600 Output Total 200 302 Balance 150 298 Intake: Oral 350 600 Output: Void Amount 200 300 # of times incontinent of urine 2 Other: Meal Dinner Percent of Meal Consumed 100% Feeding Ability Assist with Tray Set Up Urine Appearance Clear Clear Urine Color Bright Yellow Dark Yellow Weight 150 lb Medical - DS: Data Labs on day of discharge: Labs from last 24 hours 05/28/19 05/28/19 04:30 04:30 WBC 5.8 RBC 4.17 Hgb 12.0 Hct 36.6 MCV 87.6 MCH 28.8 MCHC 32.9 RDW 16.5 H Plt Count 161 MPV 10.3 Total Counted 100 Seg Neutrophils % 65 Band Neutrophils % Not Reportable Lymphocytes % 16 Monocytes % (Manual) 15 H Eosinophils % (Manual) 4 Platelet Estimate Normal RBC Morphology Abnorm A Anisocytosis 1+ A Sodium 136 Potassium 4.5 Chloride 95 L Carbon Dioxide 29 Anion Gap 12.0 BUN 34 H Creatinine 1.4 H GFR Calculation 36 Glucose 93 Uric Acid 8.9 H Calcium 10.6 H Phosphorus 3.2 Magnesium 2.1 Total Bilirubin 0.4 Direct Bilirubin < 0.2 GGT 31 AST 37 ALT 42 H Alkaline Phosphatase 81 Lactate Dehydrogenase 232 Total Protein 6.1 Albumin 3.5 Globulin 2.6 Albumin/Globulin Ratio 1.3 Triglycerides 137 Medical - DS: A/P - Patient/Caregiver Discharge Instructions Activity: as per physical therapy, increase activity as tolerated Diet: Regular Diet (Follow strict feeding recommendations from ST) Additional Instructions: No PCP in 5 to 7 days continue oral Augmentin for 5-6 days Diet recommendations as per ST below Daily weights, if weight gain over 4 pounds over baseline double the dose of Lasix for 3 to 5 days Return to ER if worsening shortness of breath fever chills Speech Therapy Notes: Utilize Carter Free water protocol, which includes consistent cleansing of the oral cavity with brushing and mouth wash to reduce presence of bacteria before drinking thin liquids. Patient should utilize multiple times per day before drinking liquids. 2) patient should utilize a chin tuck to reduce risk of aspiration and pooling 3) In conjunction with chin tuck, patient should throat clear after each swallow and re-swallow to reduce pooling in the valleculae. 4) Patient to complete exercises to strengthen pharyngeal musculature. Prescriptions: Amoxicillin/Potassium Clav [Augmentin] 875 mg PO BIDCC #12 tab Transmission Status: Sent to [facility] - Problem Maintenance (1) Acute respiratory failure with hypoxia Status: Resolved - Follow up Plan Follow up with: Vitaliy Hardy DO [Primary Care Provider] - Disposition: Home Health Service Prognosis: Good Rehab Potential: Fair I certify that the patient requires SNF services: No Overall status at discharge: patient is progressing back to baseline
[2019-06-05] MEDS ORDERED: ALENDRONATE SODIUM 70 MG TABLET PO SCH ×2 (07:00)
== END 2019-05-28 11:40 | disposition home health service (06) | DRG 304 ==
LOC: ED 08:03 → ICU 11:00 → MEDSUR 05-25 11:20 → ICU 05-25 11:52 → MEDSUR 05-26 13:15
PROVIDERS: ADMIT Internal Medicine; ATTEND Internal Medicine

== ENCOUNTER 2023-05-06 00:25 | Inpatient (IN) ==
[2023-05-06] MEDS ORDERED: FUROSEMIDE 40 MG/4 ML VIAL IV ONE (00:38)
[2023-05-06 00:40] LABS: POC Calcium, Ionized 1.23 (1.16-1.32); POC Creatinine 1.2 (0.6-1.2); POC Potassium 4.9 (3.3-5.1)
[2023-05-06] MEDS ORDERED: ASPIRIN 81 MG TAB.CHEW CHEWED ONE (00:57)
[2023-05-06 01:25] LABS: Basophils # (Auto) 0.06 K/mcL (0.00-0.30); Basophils % (Auto) 0.5 % (0.0-2.0); Eosinophils # (Auto) 0.14 K/mcL (0.00-0.70); Eosinophils % (Auto) 1.1 % (0.0-7.0); Hematocrit 45.6 % (34.1-44.9); Hemoglobin 14.2 g/dL (11.2-15.7); Lymphocytes # (Auto) 1.26 K/mcL (1.50-4.80); Lymphocytes % (Auto) 9.7 % (15.5-49.0); Mean Cell Volume 88.7 fL (80.0-100.0); Mean Corpuscular HGB Conc 31.1 g/dL (31.0-36.0); Monocytes # (Auto) 1.07 K/mcL (0.10-0.90); Monocytes % (Auto) 8.3 % (1.0-12.0); Neutrophils % (Auto) 80.1 % (38.0-78.0); Platelet Count 194 K/mcL (140-440); RBC 5.14 M/mcL (3.59-5.38); WBC 12.9 K/mcL (4.5-11.0)
[2023-05-06] MEDS ORDERED: cefTRIAXone 1 GM VIAL IV ONE (01:41)
[2023-05-06] MEDS ORDERED: ONDANSETRON 4 MG/2 ML VIAL IV PRN (09:02)
[2023-05-06] MEDS ORDERED: HYDROcodone/APAP 5/325MG TABLET PO PRN (09:02)
[2023-05-06] MEDS ORDERED: MAGNESIUM HYDROXIDE 30 ML ORAL.SUSP PO PRN (09:02)
[2023-05-06] MEDS ORDERED: ACETAMINOPHEN 325 MG TABLET PO PRN (09:02)
[2023-05-06] MEDS ORDERED: NON FORMULARY MEDICATION 1 DOSE MISCELL (Levothyroxine 137 mcg tablet) PO SCH (11:20)
[2023-05-06] MEDS: ATORVASTATIN 40 MG TABLET PO SCH (11:38)
[2023-05-06] MEDS: amLODIPine 5 MG TABLET PO SCH (11:39)
[2023-05-06] MEDS: hydrALAZINE 25 MG TABLET PO SCH ×2 (11:39→21:13)
[2023-05-06] MEDS: cloNIDine HCL 0.1 MG TABLET PO SCH ×2 (11:39→21:13)
[2023-05-06] MEDS: LOSARTAN 50 MG TABLET PO SCH (11:42)
[2023-05-06] MEDS ORDERED: DEXTROSE 31 GM ORAL.SUSP PO PRN (14:16)
[2023-05-06] MEDS ORDERED: DEXTROSE 50% 50 ML VIAL IV PRN (14:16)
[2023-05-06] MEDS: 0.9 % SODIUM CHLORIDE 10 ML SYRINGE IV SCH ×2 (15:19→21:17)
[2023-05-06] MEDS: INSULIN LISPRO 1 UNIT/0.01 ML UNIT SQ SCH ×2 (16:50→21:17)
[2023-05-06] MEDS ORDERED: traZODone HCL 50 MG TABLET PO PRN (21:00)
[2023-05-06] MEDS: POTASSIUM CHLORIDE 10 MEQ TABLET PO SCH (21:13)
[2023-05-07] MEDS: 0.9 % SODIUM CHLORIDE 10 ML SYRINGE IV SCH (06:10)
[2023-05-07] MEDS: INSULIN LISPRO 1 UNIT/0.01 ML UNIT SQ SCH ×2 (07:20→11:20)
[2023-05-07 07:29] LABS: Basophils # (Auto) 0.04 K/mcL (0.00-0.30); Basophils % (Auto) 0.5 % (0.0-2.0); Eosinophils # (Auto) 0.02 K/mcL (0.00-0.70); Eosinophils % (Auto) 0.3 % (0.0-7.0); Hematocrit 41.7 % (34.1-44.9); Hemoglobin 13.1 g/dL (11.2-15.7); Lymphocytes # (Auto) 1.19 K/mcL (1.50-4.80); Lymphocytes % (Auto) 15.4 % (15.5-49.0); Mean Corpuscular HGB Conc 31.4 g/dL (31.0-36.0); Mean Platelet Volume 12.9 fL (8.8-12.5); Monocytes # (Auto) 0.88 K/mcL (0.10-0.90); Monocytes % (Auto) 11.4 % (1.0-12.0); Neutrophils % (Auto) 72.1 % (38.0-78.0); Platelet Count 165 K/mcL (140-440); RBC 4.74 M/mcL (3.59-5.38); Red Cell Distribution Width 14.5 % (11.5-14.5); WBC 7.8 K/mcL (4.5-11.0)
[2023-05-07] MEDS ORDERED: LEVOTHYROXINE SODIUM 112 MCG TABLET PO SCH (07:30)
[2023-05-07] MEDS ORDERED: PANTOPRAZOLE 40 MG TABLET PO SCH (07:30)
[2023-05-07] MEDS ORDERED: LEVOTHYROXINE 25 MCG TABLET PO SCH (07:30)
[2023-05-07 07:55] LABS: ALT/SGPT 13 U/L (<40); AST/SGOT 17 U/L (<32); Albumin 3.6 gm/dL (3.2-5.2); Albumin/Globulin Ratio 1.2 (1.0-2.3); Alkaline Phosphatase 96 U/L (39-117); Blood Urea Nitrogen 15 mg/dL (8-23); Calcium 9.1 mg/dL (8.6-10.4); Carbon Dioxide 22 mmol/L (22-30); Chloride 105 mmol/L (96-108); Globulin 3.1 gm/dL (2.2-3.7); Glomerular Filtration Rate 46; Glucose 103 mg/dL (70-105)
[2023-05-07] MEDS: cloNIDine HCL 0.1 MG TABLET PO SCH (08:30)
[2023-05-07] MEDS: LOSARTAN 50 MG TABLET PO SCH (08:30)
[2023-05-07] MEDS: amLODIPine 5 MG TABLET PO SCH (08:31)
[2023-05-07] MEDS: hydrALAZINE 25 MG TABLET PO SCH (08:31)
[2023-05-07] MEDS: POTASSIUM CHLORIDE 10 MEQ TABLET PO SCH (08:31)
[2023-05-07] MEDS: ATORVASTATIN 40 MG TABLET PO SCH (08:32)
[2023-05-07] MEDS ORDERED: FUROSEMIDE 40 MG/4 ML VIAL IV SCH (09:00)
[2023-05-07] MEDS ORDERED: metFORMIN 500 MG TABLET PO SCH (09:00)
== END 2023-05-07 13:45 | disposition home or self-care (01) | DRG 291 ==
LOC: ED 00:25 → MEDSUR 08:50
PROVIDERS: ADMIT Internal Medicine; ATTEND Internal Medicine